=== PATIENT | female | born 1985 | race Caucasian/White ===

== ENCOUNTER 2021-04-11 11:07 | Outpatient (REF) | payer MEDICAID, SELFPAY ==
--- NOTE | ~2021-04-11 | US_ITS ---
EXAMINATION: ULTRASOUND PELVIS AND TRANSVAGINAL. CLINICAL INFORMATION: Excessive menses COMPARISON: None TECHNIQUE: Transabdominal and transvaginal imaging of pelvis is performed FINDINGS: The uterus is anteverted and retroflexed. It measures 9.6 cm in length, 4.0 cm in AP and 6.0 cm in transverse dimension. Endometrial thickness is 1.0 cm. There is fluid and echogenic polyp within the endometrial canal. The polyp measures 0.9 x 0.6 x 0.8 cm. There are small hypoechoic areas in the cervix with increased vascularity Right ovary measures 3.6 x 2.0 x 2.4 cm and volume 9.1 mL. It appears unremarkable. Left ovary measures 3.0 x 2.7 x 2.1 cm and volume 8.9 mL. It appears unremarkable. There is no free fluid in the cul-de-sac. US/US pelvic and transvaginal IMPRESSION: Small polyp within the endometrial canal with minimal fluid. Small cystic areas in the cervix with some vascularity likely complex cysts. Unremarkable ovaries.
== END 2021-04-11 11:08 | disposition home or self-care (01) ==
LOC: HO.US 11:07
PROVIDERS: PCP Internal Medicine; Visit Provider Advanced Practice Midwife
DX: N92.1 Excessive and frequent menstruation with irregular cycle (principal)
CPT/HCPCS: 76830; 76856

== ENCOUNTER 2021-05-17 09:38 | Outpatient (REF) | payer MEDICAID, SELFPAY | END 2021-05-17 09:39 | disposition home or self-care (01) | LOC: HO.LAB 09:38 | PROVIDERS: Visit Provider Internal Medicine | DX: Z20.822 Contact with and (suspected) exposure to COVID-19 (principal) | CPT/HCPCS: C9803; U0003; U0005 ==

== ENCOUNTER 2024-04-28 15:24 | Outpatient (REF) | payer MEDICAID, SELFPAY ==
[2024-04-28 16:23] LABS: MANUAL DIFF FLAG NO
[2024-04-28 16:25] LABS: Basophils Percent Auto 0.5 % (0-2); Eosinophils Absolute Auto 0.2 X10*3/uL (0.0-0.4); Eosinophils Percent Auto 3.1 % (0-4); Hematocrit 39.7 % (37.0-47.0); Hemoglobin 13.9 g/dl (12.0-16.0); Imm Gran Abs Auto 0.02 X10*3/uL (0.00-0.03); Imm Gran Pct Auto 0.4 % (0.0-0.4); Lymphocytes Absolute Auto 1.6 X10*3/uL (1.2-4.9); Lymphocytes Percent Auto 29.1 % (20-40); Mean Corpuscular Hemoglobin 32.2 pg (27.0-33.0); Mean Corpuscular Volume 91.9 fL (80.0-98.0); Mean Platelet Volume 11.2 fL (9.4-12.3); Monocytes Absolute Auto 0.4 X10*3/uL (0.1-1.2); Monocytes Percent Auto 6.7 % (2-11); Neutrophils Absolute Auto 3.4 x10*3/uL (2.0-8.3); Neutrophils Percent Auto 60.2 % (45-73); Platelet Count 275 X10*3/uL (160-400); Red Blood Count 4.32 X10*6/uL (4.20-5.50); Red Cell Distribution Width 11.9 % (11.0-16.0); White Blood Count 5.6 X10*3/uL (4.8-10.8)
[2024-04-28 16:31] LABS: Estimated Average Glucose 94 mg/dL; Hemoglobin A1c % 4.9 % (<6.0)
[2024-04-28 16:42] LABS: Alanine Aminotransferase 20 U/L (0-31); Albumin Level 4.2 g/dL (3.5-5.0); Alkaline Phosphatase 71 U/L (39-117); Anion Gap 13 (12-20); Aspartate Amino Transferase 19 U/L (5-31); Bilirubin Total 0.3 mg/dL (0.0-1.0); Blood Urea Nitrogen 9 mg/dL (9-16); Calcium 9.4 mg/dL (8.4-10.2); Carbon Dioxide 28 mmol/L (22-29); Chloride 105 mmol/L (96-108); Cholesterol 163 mg/dL (<200); Estimated Glomerular Filt Rate > 60; Glucose Random 77 mg/dL (60-115); HDL Cholesterol 43 mg/dL (>40); LDL Cholesterol Calculated 74 mg/dL (<100); Potassium 4.5 mmol/L (3.3-5.1); Sodium 141 mmol/L (135-145); Total Protein 7.7 g/dL (6.5-8.0); Triglycerides 230 mg/dL (<150)
[2024-04-28 16:58] LABS: Vitamin D 25-OH Total 47.7 ng/mL (>30)
[2024-04-29 07:09] LABS: Reflex LDLD? No
[2024-04-29 08:29] LABS: HIV AB/AG Nonreactive (Nonreactive); HIV Num 1 0.05 S/CO (0.00-0.99)
[2024-04-30 07:24] LABS: HCV Log PCR <1.18 NOT DETECTED Log IU/mL (NOT DETECTED); HepC Viral Load <15 NOT DETECTED IU/mL (NOT DETECTED)
== END 2024-04-28 15:25 | disposition home or self-care (01) ==
LOC: HO.HHCL 15:24
PROVIDERS: Visit Provider Internal Medicine
DX: Z00.00 Encounter for general adult medical examination without abnormal findings (principal)
CPT/HCPCS: 36415; 80053; 80061; 82306; 83036; 85025; 87389; 87522

== ENCOUNTER 2025-07-20 11:05 | Outpatient (REF) | payer MEDICAID, SELFPAY ==
--- OUTSIDE RECORDS SUMMARY | 2025-07-20 10:15 | XMS_ITS | Encounter Summary ---
Author Organization [employer] Address [address] [facility] [address] [place] [address] Care Team Providers Care Harvest Crew Supervisor Name Role Phone Gertrude Ortiz MD Primary Care Provide r Reason for Referral * Consultation (Routine) - Pending Review Specialty Diagnoses / Procedures Referred By Tristan palacios Referred To Contact Optometry Diagnoses Encounter for preventative adult health care examination Gertrude Ortiz MD [address] [place] [address] Phone: tel: fax: Referral ID Status Reason Start Date Expiration Date Visits Requested Visits Authorized [id number] Pending Review Specialty Services Required 07/20/2025 07/20/2026 1 1 * Imaging (Routine) - Authorized Specialty Diagnoses / Procedures Referred By Tristan palacios Referred To Contact Radiology Diagnoses Encounter for screening mammogram for malignant neoplasm of breast Procedures BI Mammogram Screening Tomosynthesis Bilateral Gertrude Ortiz MD [address] [place] [address] Phone: tel: fax: [address] Phone: tel: fax: Referral ID Status Reason Start Date Expiration Date V isits Requested Visits Authorized [id number] Authorized 07/20/2025 07/20/2026 1 1 Encounter Details Date Type Department Care Team (Late st Contact Info) Description 07/20/2025 10:15 AM EDT Office Visit [facility] [address] [facility] [place] [address] Gertrude Ortiz MD [address] [facility] [place] [address] Iron deficiency anemia, unspecified iron deficiency anemia type (Primary Dx); Dietary counseling; Exercise counseling; Encounter for screening mammogram for malignant neoplasm of breast; Encounter for preventative adult health care examination; Class 1 obesity due to excess calories without serious comorbidity with body mass index (BMI) of 33.0 to 33.9 in adult; Seborrheic dermatitis Social History Tobacco Use Types Packs/Day Years Used Date Smoking Tobacco: Never Smokeless Tobacco: Never Alcohol Use Standard Drinks/Week Comments Not Currently 0 (1 standard drink = 0.6 oz pur e alcohol) rare Depression Answer Date Recorded Patient Health Questionnaire-9 Score 0 04/28/2024 Patient Health Questionnaire-9 Score 0 04/28/2024 Last PHQ-9: Questionnaire Data Not on file 0 04/28/2024 Housing Stability Answer Date Recorded What is your housing situation today? I have cherry jensen 04/28/[address] you li ve. Do you have problems with any of the following? None of the above 04/28/2024 Food Insecurity Answer Date Recorded Within the past 12 months, y ou worried that your food would run out before you got money to buy more: Never True 04/28/2024 Within the past 12 months,th e food you bought just didn't last and you didn't have enough money to get more: Never True Transportation Answer Date Recorded In the past 12 months, has l ack of transportation kept you from medical appts, meetings, work or from getting things needed for daily living? No 04/28/2024 Utilities Answer Date Recorded In the past 12 months, has t he electric, gas, oil or water company threatened to shut off services in your home? No 04/28/2024 Depression Answer Date Recorded Patient Health Questionnaire-2 Score 0 04/28/2024 Internet Access Answer Date Recorded Internet Access Q1 No 07/07/2024 Internet Access Q2 I do not want or need it 12/2023 Comments Unknown Sex and Gender Information Value Date Recorded Sex Assigned at Female 09/04/2022 10:30 AM EDT Legal Sex Female 10:30 AM EDT Gender Identity Female 09/04/2022 10:30 AM EDT Sexual Orientation Choose not to disclose 2021 10:30 AM EDT documented as of this encounter Last Filed Vital Signs Vital Sign Reading Time Taken Comments Blood Pressure 130/70 07/20/2025 10:21 AM EDT Pulse 74 07/20/2025 10:21 AM EDT Temperature 36.4 C (97.6 F) 07/20/2025 10:21 AM EDT Respiratory Rate 16 07/20/2025 10:21 AM EDT Oxygen Saturation - - Inhaled Oxygen Concentration - - Weight 91.4 kg (201 lb 6.4 oz) 07/20/2025 10:21 AM EDT Height 165.7 cm (5' 5.25 ) 07/20/2025 10:21 AM E DT Body Mass Index 33.26 07/20/2025 10:21 AM EDT documented in this encounter Progress Notes * Gertrude Hernández MD - 07/20/2025 10:15 AM EDT SUBJECTIVE: Sussy Ervin is a 39 y.o. year old female who presents for Physical . 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 Diet:regular Exercise:2-3 times week riding her bike LMP:regular 07/19/25 Pap Smear:due on 12/08/2025 Mammogram: ordered today Hospitalizations/Surgeries: Eye Care:referral to director of emergency nursing today Dental Care:up to date PMHx:on chart FMHx:mother DM type 2 Immunizations: Hepatitis B vaccine Acute Concerns: Patient reports she is concerned about her weight, she has been exercising going to the gym every day and she has been trying to be active and as much as she can to a healthy diet she does report shehas been having some issues trying to avoid sweets and desserts Social History Social History Narrative Not on file Problem List[1] Allergic rhinitis Cyst of cervix Iron deficiency anemia due to chronic blood loss Metrorrhagia Polyp of corpus uteri Recurrent urinary tract infection Seborrheic dermatitis Urinary tract infectious disease Encounter for screening and preventative care Neck pain Upper back pain Obesity (BMI 30.0-34.9) Encounter for preventative adult health care examination Dermatitis of face Encounter for screening mammogram for malignant neoplasm of breast Iron deficiency anemia Class 1 obesity due to excess calories without serious comorbidity with body mass index (BMI) of 33.0 to 33.9 in adult Family History[2] Review of Systems Constitutional: Negative. HENT: Negative. Respiratory: Negative. Cardiovascular: Negative. OBJECTIVE: Vitals: 07/20/25 1021 BP: 130/70 BP Location: Left arm Patient Position: Sitting BP Cuff Size: Adult Pulse: 74 Resp: 16 Temp: 97.6 ??F (36.4 ??C) TempSrc: Oral Weight: 201 lb 6.4 oz (91.4 kg) Height: 5' 5.25 (1.657 m) Physical Exam Constitutional: Appearance: Normal appearance. Cardiovascular: Rate and Rhythm: Normal rate and regular rhythm. Pulmonary: Effort: Pulmonary effort is normal. Breath sounds: Normal breath sounds. Abdominal: General: Abdomen is flat. Palpations: Abdomen is soft. Musculoskeletal: Right lower leg: No edema. Left lower leg: No edema. Neurological: Mental Status: She is alert. Follow Up: Follow up for 4-6weeks televisit weight monitoring. Medications Ordered Prior to Encounter[3] Problem List Items Addressed This Visit Encounter for screening mammogram for malignant neoplasm of breast Relevant Orders BI Mammogram Screening Tomosynthesis Bilateral Encounter for preventative adult health care examination See HPI Relevant Orders Referral to Optometry CBC auto differential Comprehensive Metabolic Panel Hemoglobin A1c HIV-1/2 Antigen and Antibodies, Fourth Generation, with Reflexes Hepatitis C Antibody with Reflex to HCV, RNA, Quantitative, Real-Time PCR Lipid Panel, Standard Vitamin D, 25-Hydroxy, Total, Immunoassay TSH with Reflex to Free T4 Hepatitis B Surface Antibody, Qualitative Hepatitis B surface antigen, EIA Hepatitis B Core Antibody, Total Iron deficiency anemia - Primary Relevant Orders Iron And Total Iron Binding Capacity Ferritin Vitamin B12 (Cobalamin) and Folate Panel, Serum Class 1 obesity due to excess calories without serious comorbidity with body mass index (BMI) of 33.0 to 33.9 in adult Extensive counseling about healthy diet and exercise done today Patient already has been referred to a pump stitcher in the past I decided to start her today on phentermine 15 mg together with topiramate 25 mg daily Relevant Medications phentermine 15 MG capsule topiramate (Topamax) 25 MG tablet Seborrheic dermatitis Relevant Medications ketoconazole (NIZOral) 2 % shampoo Other Visit Diagnoses Dietary counseling Relevant Medications phentermine 15 MG capsule topiramate (Topamax) 25 MG tablet Exercise counseling Relevant Medications phentermine 15 MG capsule topiramate (Topamax) 25 MG tablet [1] Patient Active Problem List Diagnosis Allergic rhinitis Cyst of cervix Iron deficiency anemia due to chronic blood loss Metrorrhagia Polyp of corpus uteri Recurrent urinary tract infection Seborrheic dermatitis Urinary tract infectious disease Encounter for screening and preventative care Neck pain Upper back pain Obesity (BMI 30.0-34.9) Encounter for preventative adult health care examination Dermatitis of face Encounter for screening mammogram for malignant neoplasm of breast Iron deficiency anemia Class 1 obesity due to excess calories without serious comorbidity with body mass index (BMI) of 33.0 to 33.9 in adult [2] No family history on file. [3] Current Outpatient Medications on File Prior to Visit Medication Sig Dispense Refill triamcinolone (Kenalog) 0.1 % cream Apply topically if needed in the morning and at bedtime (pain and swelling). 30 g 2 [DISCONTINUED] ketoconazole (NIZOral) 2 % shampoo Apply topically 2 (two) times a week. 120 mL 1 No current facility-administered medications on file prior to visit. documented in this encounter Miscellaneous Notes * Assessment & Plan Note - Gertrude Hernández MD - 07/20/2025 12:59 PM EDT Associated Problem(s): Encounter for preventative adult health care examination See HPI * Assessment & Plan Note - Gertrude Hernández MD - 07/20/2025 12:59 PM EDT Associated Problem(s): Class 1 obesity due to excess calories without serious comorbidity with bodymass index (BMI) of 33.0 to 33.9 in adult Extensive counseling about healthy diet and exercise done today Patient already has been referred to a pump stitcher in the past I decided to start her today on phentermine 15 mg together with topiramate 25 mg daily documented in this encounter Plan of Treatment Upcoming Encounters Date Type Department Care Team (Late st Contact Info) Description 08/18/2025 9:00 AM EDT Telemedicine [facility]INE [address] [place] [address] Gertrude Ortiz MD [address] [place] [address] Scheduled Orders Name Type Priority Associated Diagnoses Orde r Schedule BI Mammogram Screening Tomosynthesis Bilateral Imaging Routine Encounter for screening mammogram for malignant neoplasm of breast Expected: 07/20/2025, Expires: 09/19/2026 HIV-1/2 Antigen and Antibodies, Fourth Generation, with Reflexes Lab Routine Encounter for preventative adult health care examination Expected: 07/20/2025 (Approximate), Expires: 07/20/2026 Hepatitis C Antibody with Reflex to HCV, RNA, Quantitative, Real-Time PCR Lab Routine Encounter for preventative adult health care examination Expected: 07/20/2025, Expires: 07/20/2026 Hepatitis B Surface Antibody, Qualitative Lab Routine Encounter for preventative adult health care examination Expected: 07/20/2025 (Approximate), Expires: 07/20/2026 Hepatitis B surface antigen, EIA Lab Routine Encounter for preventative adult health care examination Expected: 07/20/2025 (Approximate), Expires: 07/20/2026 Hepatitis B Core Antibody, Total Lab Routine Encounter for preventative adult health care examination Expected: 07/20/2025 (Approximate), Expires: 07/20/2026 Scheduled Referrals Name Type Priority Associated Diagnoses Orde r Schedule Referral to Optometry Outpatient Referral Routine Encounter for preventative adult health care examination Expected: 07/20/2025 (Approximate), Expires: 07/20/2026 documented as of this encounter Procedures Procedure Name Priority Date/Time Associated Diagnosis Comments VITAMIN D,25-OH,TOTAL,IA Routine 07/20/2025 11:33 AM EDT Encounter for preventative adult health care examination VITAMIN B12/FOLATE, SERUM PANEL Routine 07/20/2025 11:33 AM EDT Iron deficiency anemia, unspecified iron deficiency anemia type TSH W/REFLEX TO FT4 Routine 07/20/2025 1 1:33 AM EDT Encounter for preventative adult health care examination CBC WITH AUTO DIFFERENTIAL Routine 07/20/2025 11:33 AM EDT Encounter for preventative adult health care examination IRON AND TOTAL IRON BINDING CAPACITY Routine 07/20/2025 11:33 AM EDT Iron deficiency anemia, unspecified iron deficiency anemia type HEMOGLOBIN A1C Routine 07/20/2025 11:33 AM EDT Encounter for preventative adult health care examination FERRITIN Routine 07/20/2025 11:33 AM EDT Iron deficiency anemia, unspecified iron deficiency anemia type LIPID PANEL, STANDARD Routine 07/20/2025 11:33 AM EDT Encounter for preventative adult health care examination COMPREHENSIVE METABOLIC PANEL Routine 07/20/2025 11:33 AM EDT Encounter for preventative adult health care examination documented in this encounter Results * TSH with Reflex to Free T4 (07/20/2025 11:33 AM EDT) TSH reflex Free T4 1.04 0.32 - 4.0 uIU/mL LABS Blood Venous blood specimen / Unknown 07/20/2025 11:33 AM EDT 07/20/2025 1:29 PM EDT us Gertrude Hernández MD LAB BLOOD ORDERABLES Final Result LABS [address] [place] [phone] * Vitamin D, 25-Hydroxy, Total, Immunoassay (07/20/2025 11:33 AM EDT) Vitamin D 25-OH Total 33.4 >30 ng/mL LABS Comment: Health Based Reference Values*< 20 ng/mL [id number] ng/mL Insufficient> 30 ng/mL Sufficient*Artur HERNANDEZ. N Engl J Med. 2007;357:266-280There is no well-established upper level of normal vitamin Dlevels. Some laboratories use 50 ng/mL as an upper limit ofnormal. However, toxicity is patient-dependent and may occurat any level. Careful correlation with the patient'spresentation is necessary and, if there is concern forvitamin D toxicity, treatment should be consideredirrespective of the serum level.Care must be taken in interpreting Vitamin D results fromdifferent laboratories and methodologies. Published datademonstrated that results from patients undergoinghemodialysis may show a negative bias when tested withvarious automated 25-OH vitamin D assays when compared toLC-MS/MS.When testing samples from patients whose predominant form ofVitamin D is Vitamin D2, such as patients receiving VitaminD2 supplementation, results that are subtherapeutic shouldbe confirmed with another method such as LC-MS/MS. Blood Venous blood specimen / Unknown 07/20/2025 11:33 AM EDT 07/20/2025 1:29 PM EDT us Gertrude Hernández MD LAB BLOOD ORDERABLES Final Result LABS [address] [place] [phone] * (ABNORMAL) Lipid Panel, Standard (07/20/2025 11:33 AM EDT) Triglycerides 115 <150 mg/dL [facility] LAB[facility] Comment:Desirable Triglyceri de: less than 150 mg/dLBorderline High Triglyceride 150-199 mg/dLHigh Triglyceride: 200-499 mg/dLVery High Triglyceride: greater than or equal to 5OO mg/dL Cholesterol 231(H) <200 mg/dL LABS Comment:Desirable Cholestero l: less than 200 mg/dLBorderline High Cholesterol: 200-239 mg/dLHigh Cholesterol: greater than 239 mg/dL LDL Cholesterol Calculated 156(H) <100 mg/dL LABS Comment:Desirable LDL: less than 100 mg/dLNear Optimal/Above Optimal LDL: 110- 129 mg/dLBorderline High LDL: 130-159 mg/dLHigh LDL: 160-189 mg/dLVery High LDL: greater than or equal to 190 mg/dL HDL Cholesterol 52 >40 mg/dL [facility] LAB[facility] Comment:Desirable HDL: great er than 40 mg/dL Note: This HDL assay may give artificially low results in patients with liver disease. Blood Venous blood specimen / Unknown 07/20/2025 11:33 AM EDT 07/20/2025 1:29 PM EDT us Gertrude Hernández MD LAB BLOOD ORDERABLES Final Result LABS [address] [place] [phone] * Hemoglobin A1c (07/20/2025 11:33 AM EDT) Hemoglobin A1c 5.0 <6.0 % [facility] Comment:Hemoglobin A1C Refer ence Range Adults: 4.8 - 6.0 % Non diabetic: < 6.0 % Goal: < 7.0 %Additional Action Suggested: > 8.0 %Note: Hemoglobin A1c results are invalid for patients with abnormal amounts of HbF. Blood transfusions may impact the HbA1c concentration in the patient sample. Estimated Average Glucose 97 mg/dL LABS Comment:eAG = Estimated ave rage glucose which is %A1C expressed asaverage glucose, using the formula of the T3T-[id number] Glucose study (ADAG), Diabetes Care, Vol.31,#8,Jun. 2007 Blood Venous blood specimen / Unknown 07/20/2025 11:33 AM EDT 07/20/2025 1:29 PM EDT us Gertrude Hernández MD LAB BLOOD ORDERABLES Final Result Performing Organization Address City/[facility]/ZIP Co de Phone Number LABS [address] [place], [place] [phone] * (ABNORMAL) Comprehensive Metabolic Panel (07/20/2025 11:33 AM EDT) Sodium 139 135 - 145 mmol/L LABS Potassium 4.5 3.3 - 5.1 mmol/L LABS Chloride 107 96 - 108 mmol/L LABS Carbon Dioxide 27 22 - 29 mmol/L LABS Anion Gap 10(L) 12 - 20 LABS Urea Nitrogen (BUN) 11 9 - 16 mg/dL LABS Creatinine, Serum 0.76 0.5 - 1.4 mg/dL LABS Estimated Glomerular Filt Rate >60 LABS Comment:Chronic Kidney Disea se: Estimated GFR < 60 mL/min/[id number] Kidney Disease: Estimated GFR < 15 mL/min/1.73m2 Glucose 94 60 - 115 mg/dL LABS Calcium 9.3 8.4 - 10.2 mg/dL LABS Bilirubin, Total 0.4 0.0 - 1.0 mg/dL LABS Aspartate Amino Transferase 40(H) 5 - 31 U/L LABS Alanine Aminotransferase 54(H) 0 - 31 U/L LABS Total Protein 7.8 6.5 - 8.0 g/dL LABS Albumin Level 4.4 3.5 - 5.0 g/dL LABS Alkaline Phosphatase 86 39 - 117 U/L LABS Blood Venous blood specimen / Unknown 07/20/2025 11:33 AM EDT 07/20/2025 1:29 PM EDT us Gertrude Hernández MD LAB BLOOD ORDERABLES Final Result Performing Organization Address City/[facility]/ZIP Co de Phone Number LABS [address] [place] [phone] * CBC auto differential (07/20/2025 11:33 AM EDT) White Blood Count 5.6 4.8 - 10.8 X10*3/uL LABS Red Blood Count 4.28 4.20 - 5.50 X10*6/uL LABS Hemoglobin 13.4 12.0 - 16.0 g/dl LABS Hematocrit 39.1 37.0 - 47.0 % LABS Mean Corpuscular Volume 91.4 80.0 - 98.0 fL LABS Mean Corpuscular Hemoglobin 31.3 27.0 - 33.0 pg LABS Mean Corpuscular HGB Conc 34.3 31.0 - 35.0 g/dl LABS Red Cell Distribution Width 12.4 11.0 - 16.0 % LABS Platelet Count 290 160 - 400 X10*3/uL LABS Mean Platelet Volume 11.4 9.4 - 12.3 fL LABS Neutrophils Percent Auto 55.7 45 - 73 % LABS Imm Gran Pct Auto 0.4 0.0 - 0.4 % LABS Lymphocytes Percent Auto 33.3 20 - 40 % LABS Monocytes Percent Auto 6.4 2 - 11 % LABS Eosinophils Percent Auto 3.7 0 - 4 % LABS Basophils Percent Auto 0.5 0 - 2 % LABS NRBC Pct Auto 0.0 0.0 - 0.2 /100WBC LABS Neutrophils Absolute Auto 3.1 2.0 - 8.3 x10*3/uL LABS Imm Gran Abs Auto 0.02 0.00 - 0.03 X10*3/uL LABS Lymphocytes Absolute Auto 1.9 1.2 - 4.9 X10*3/uL LABS Monocytes Absolute Auto 0.4 0.1 - 1.2 X10*3/uL LABS Eosinophils Absolute Auto 0.2 0.0 - 0.4 X10*3/uL LABS Basophils Absolute Auto 0.0 0.0 - 0.2 X10*3/uL LABS NRBC Abs Auto 0.000 0.0 - 0.012 X10*3/uL LABS Blood Venous blood specimen / Unknown 07/20/2025 11:33 AM EDT 07/20/2025 1:29 PM EDT us Gertrude Hernández MD LAB BLOOD ORDERABLES Final Result LABS [address] [place] [phone] * Vitamin B12 (Cobalamin) and Folate Panel, Serum (07/20/2025 11:33 AM EDT) Vitamin B12 285 200 - 900 pg/mL LABS Comment:NORMAL 200-900 PG/ML INDETERMINATE 160-199 PG/ML DEFICIENT < 160 PG/ML Folate 10.0 > or = 4.0 ng/mL LABS Comment:Reference Values:> o r = 4.0 ng/mL< 4.0 ng/mL suggests folate deficiency Methotrexate, aminopterin and folinic acid(leucovorin) are chemotherapeutic agents whose molecularstructures are similar to folate; therefore, the Architectfolate assay cannot be used for patients using these drugs. Blood Venous blood specimen / Unknown 07/20/2025 11:33 AM EDT 07/20/2025 1:29 PM EDT us Gertrude Hernández MD LAB BLOOD ORDERABLES Final Result Performing Organization Address City/[facility]/ZIP Co de Phone Number LABS [address] [place] [phone] * Ferritin (07/20/2025 11:33 AM EDT) Ferritin 25 10 - 250 ng/mL LABS Blood Venous blood specimen / Unknown 07/20/2025 11:33 AM EDT 07/20/2025 1:29 PM EDT us Gertrude Hernández MD LAB BLOOD ORDERABLES Final Result Performing Organization Address City/[facility]/ZIP Co de Phone Number LABS [address] [place] [phone] * Iron And Total Iron Binding Capacity (07/20/2025 11:33 AM EDT) Iron 74 30 - 160 mcg/dL LABS Total Iron Binding Capacity 264 228 - 428 mcg/dL LABS Percent Iron Saturation 28 15 - 50 % LABS Unsaturated Iron Binding 190 ug/dL LABS Blood Venous blood specimen / Unknown 07/20/2025 11:33 AM EDT 07/20/2025 1:29 PM EDT us Gertrude Hernández MD LAB BLOOD ORDERABLES Final Result Performing Organization Address City/[facility] Co de Phone Number LABS [address] [place] [phone] documented in this encounter Visit Diagnoses Diagnosis Iron deficiency anemia, unspecified iron deficiency anemia type- Primary Dietary counseling Dietary surveillance and counseling Exercise counseling Encounter for screening mammogram for malignant neoplasm of breast Encounter for preventative adult health care examination Class 1 obesity due to excess calories without serious comorbidity with body mass index (BMI) of 33.0 to 33.9 in adult Seborrheic dermatitis Unspecified seborrheic dermatitis documented in this encounter Additional Health Concerns Assessment Noted Time PHQ-9 Depression Total Score: 0 04/28/20 24 2:47 PM EDT documented as of this encounter Care Teams Harvest Crew Supervisor Relationship Specialty Start Date End Date Gertrude Ortiz MD [address] [place] [phone] PCP - General Family Medicine 12/02/19 documented as of this encounter
[2025-07-20 13:40] LABS: MANUAL DIFF FLAG NO
[2025-07-20 13:41] LABS: Hematocrit 39.1 % (37.0-47.0); Hemoglobin 13.4 g/dl (12.0-16.0); Imm Gran Abs Auto 0.02 X10*3/uL (0.00-0.03); Imm Gran Pct Auto 0.4 % (0.0-0.4); Lymphocytes Absolute Auto 1.9 X10*3/uL (1.2-4.9); Mean Corpuscular HGB Conc 34.3 g/dl (31.0-35.0); Mean Corpuscular Hemoglobin 31.3 pg (27.0-33.0); Mean Corpuscular Volume 91.4 fL (80.0-98.0); NRBC Abs Auto 0.000 X10*3/uL (0.0-0.012); NRBC Pct Auto 0.0 /100WBC (0.0-0.2); Platelet Count 290 X10*3/uL (160-400); Red Blood Count 4.28 X10*6/uL (4.20-5.50); White Blood Count 5.6 X10*3/uL (4.8-10.8)
[2025-07-20 14:05] LABS: Alanine Aminotransferase 54 U/L (0-31); Albumin Level 4.4 g/dL (3.5-5.0); Alkaline Phosphatase 86 U/L (39-117); Anion Gap 10 (12-20); Aspartate Amino Transferase 40 U/L (5-31); Blood Urea Nitrogen 11 mg/dL (9-16); Calcium 9.3 mg/dL (8.4-10.2); Carbon Dioxide 27 mmol/L (22-29); Chloride 107 mmol/L (96-108); Cholesterol 231 mg/dL (<200); Estimated Glomerular Filt Rate > 60; HDL Cholesterol 52 mg/dL (>40); Iron 74 mcg/dL (30-160); Percent Iron Saturation 28 % (15-50); Potassium 4.5 mmol/L (3.3-5.1); Sodium 139 mmol/L (135-145); Total Iron Binding Capacity 264 mcg/dL (228-428); Total Protein 7.8 g/dL (6.5-8.0); Triglycerides 115 mg/dL (<150); Unsaturated Iron Binding 190 ug/dL
[2025-07-20 14:22] LABS: Hemoglobin A1C 113.9161 umol/L; Total Hemoglobin (HGBA1C) 3651.5829 umol/L
[2025-07-20 14:24] LABS: Ferritin 25 ng/mL (10-250)
[2025-07-20 14:30] LABS: Folate 10.0 ng/mL (> or = 4.0); Vitamin B12 285 pg/mL (200-900)
--- OUTSIDE RECORDS SUMMARY | 2025-07-20 14:47 | XMS_ITS | Encounter Summary ---
Author Organization [facility] Address [address] [facility] [address] [place] [phone] Phone Care Team Providers Care Pattern Painter Name Role Phone Gertrude Ortiz MD Primary Care Provider Darcy Garcia MD Unavailable [phone] Encounter Details Date Type Department Care Team (Late st Contact Info) Description 10/14/2021 Procedure Pass OR Admitting Dept - Virtual Department [address] [place] [address] Social History Tobacco Use Types Packs/Day Years Used Date Smoking Tobacco: Never Smokeless Tobacco: Never Alcohol Use Standard Drinks/Week Comments Never 0 (1 standard drink = 0.6 oz pur e alcohol) Comments No Sex and Gender Information Value Date Recorded Sex Assigned at Not on file Legal Sex Female 10:45 AM EST Gender Identity Not on file Sexual Orientation Not on file documented as of this encounter Plan of Treatment Not on file documented as of this encounter Visit Diagnoses Not on filedocumented in this encounter Care Teams Pattern Painter Relationship Specialty Start Date End Date Gertrude Ortiz MD [address] [place] [phone] PCP - General Internal Medicine 12/03/19 Darcy Garcia MD [address] [place] [address], [address] [place] [phone] francisco 12/03/19 documented as of this encounter Additional Source Comments The information contained in this document represents components of the legal health record. It is not the complete legal health record.[facility]
--- OUTSIDE RECORDS SUMMARY | 2025-07-20 14:47 | XMS_ITS | Clinical Summary ---
Author Organization [facility] Address [address] [place] [address] Phone Care Team Providers Care Ladle Filler Name Role Phone Gertrude Ortiz MD Primary Care Provider Darcy Garcia MD Unavailable [phone] Allergies No known active allergies Medications ferrous sulfate (IRON ORAL) Take 65 mg by mouth daily. Active cholecalciferol (VITAMIN D3) 4,000 unit tablet Take 1,000 Units by mouth daily. Active b complex vitamins capsule Take 1 capsule by mouth daily. Active ibuprofen (ADVIL,MOTRIN) 600 MG tablet Take 1 tablet (600 mg total) by mouth every 6 (six) hours as needed for pain (specific location in comments). 10/14/2021 Active Active Problems Problem Noted Date Diagnosed Date Endometrial polyp 10/14/2021 Iron deficiency anemia due to chronic blood loss 09/07/2021 Overview (09/07/2021): Per patient, anemia has been attributed to menstrual bleeding Menorrhagia with regular cycle 09/05/2021 Overview (09/05/2021): Regular monthly periods, some months very heavy, some normal. Last 3-4 days. Past 1 year. Also spotting for some weeks prior to some of the periods. Assessment & Plan (09/07/2021 9:09 AM EDT): Regular monthly periods, some months very heavy, some normal. Last 3-4 days. Past 1 year. Also spotting for some weeks prior to some of the periods. Review of records shows Hgb 7.5 from 11/2019. I do not have more recent labs. She is partnered male, vasectomy. She has never had an IUD. She recalls side effects from a short course of control pills used years ago. After visit, I receive her labs from [place] that were not received in the referral dated 08/09/21: HgbA1c 4.7, TSH 1.46, chlmaydia and gonnnorrhea are negative, vitD 23, normal LFTs, Ct 0.83, Hgb 11.3/Hct 36.9, Plt 316, WBC 4.9, urine culture e.coli >100,000. I see she was treated for UTI in office visit. There is no record received of any PAPs subsequent to a 2017 PAP. Overall she is borderline mildly anemic, presumably due to menorrhagia, and she is taking an iron pill (from [place] country[place] as the one Rx'ed gave side effects. Pelvic exam is unremarkable. US report reviewed which suggests a small endometrial polyp, and cervical cysts (which are usually nabothian cysts). We discuss management, and I advised hysterosocpy with removal of polyp and d&c, and also placement of mirena. We discuss, using tool design drafter, the details of this procedure, risks, and expected change in mentrual flow. She is undecided if she feels comfortable with the mirena. I reassure her we can remove it if it is giving side effects. She asks if she can just get a hysterectomy. I say that this is an option but has a longer recovery time. 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 She agrees to try the d&c and maybe mirena, with the plan for hysterectomy should things not work out. Encounter for preoperative s creening laboratory testing for COVID-19 virus Immunizations Immunization Administration Dates Next Due Tdap 08/02/2021 Social History Tobacco Use Types Packs/Day Years Used Date Smoking Tobacco: Never Smokeless Tobacco: Never Alcohol Use Standard Drinks/Week Comments Never 0 (1 standard drink = 0.6 oz pur e alcohol) Education Answer Date Recorded Are you interested in more education? Not on makenna e 03/02/2023 Are you concerned about learning? Not on file 03/02/2023 No 03/02/2023 No 03/02/2023 Digital Access Answer Date Recorded No 03/31/2023 No 03/31/2023 No 03/31/2023 Reliable internet access at home? Not on file 03/31/2023 Device with a working camera? Not on file Comments No Sex and Gender Information Value Date Recorded Sex Assigned at Not on file Legal Sex Female 10:45 AM EST Gender Identity Not on file Sexual Orientation Not on file Last Filed Vital Signs Vital Sign Reading Time Taken Comments Blood Pressure 109/62 10/14/2021 10:56 AM EST Pulse 66 10/14/2021 10:56 AM EST Temperature 36.3 C (97.3 F) 10/14/2021 10:56 AM EST Respiratory Rate 16 10/14/2021 10:56 AM EST Oxygen Saturation 100% 10/14/2021 10:56 AM EST Inhaled Oxygen Concentration - - Weight 86.2 kg (190 lb) 10/13/2021 12:35 PM EST Height 162.6 cm (5' 4 ) 10/13/2021 12:35 PM EST Body Mass Index 32.61 10/13/2021 12:35 PM EST Plan of Treatment Health Maintenance Due Date Last Done Comments DEPRESSION SCREENING 1996 HEPATITIS C SCREENING 2002 PAP SMEAR 10/14/2024 10/14/2021, 11/29/2016 MAMMOGRAM 2024 INFLUENZA VACCINE (#1) 2025 COVID-19 VACCINE (3 - 2024-2 6 season) 2025 05/04/2021, 04/13/2021 Adult Td,Tdap Booster 08/02/2031 08/02/2021 HIV ONE-TIME SCREENING (18-6 5 YEARS) Completed 12/03/2019 SMOKING STATUS SCREENING (On ce After 26 Yrs) Completed 10/13/2021 HEPATITIS A VACCINES Aged Out No long er eligible based on patient's age to complete this topic HIB VACCINES Aged Out No longer eligi ble based on patient's age to complete this topic MENINGOCOCCAL VACCINES (ACWY) Aged Out No longer eligible based on patient's age to complete this topic MENINGOCOCCAL VACCINES (B) Aged Out N o longer eligible based on patient's age to complete this topic PNEUMOCOCCAL VACCINES (0-49 years) Aged Out No longer eligible b ased on patient's age to complete this topic Medical Devices Not on file Insurance C3 ACO C3 ACO Y [address] C3 ACO [facility] C3 ACO [facility] C3 ACO Care Teams Ladle Filler Relationship Specialty Start Date End Date Gertrude Ortiz MD [address] [place] [id number] PCP - General Internal Medicine 12/03/19 Darcy Garcia MD [address] [place] [phone] [email or web address] 12/03/19 Additional Source Comments The information contained in this document represents components of the legal health record. It is not the complete legal health record.[facility]
--- OUTSIDE RECORDS SUMMARY | 2025-07-20 14:47 | XMS_ITS | Encounter Summary ---
Author Organization [employer] Address [address] [place] [address] Care Team Providers Care Technologist Infectious Disease Name Role Phone Gertrude Ortiz MD Primary Care Provide r Reason for Visit * Reason Onset Date Comments Appointment Request 07/16/2024 Encounter Details Date Type Department Care Team ([facility] st Contact Info) Description 07/16/2024 Telephone [facility] [address] [place], [place] [phone] Gertrude Ortiz MD [address] [place] [address] Appointment Request Social History Tobacco Use Types Packs/Day Years [...] AM EDT documented as of this encounter Miscellaneous Notes * Telephone Encounter - Mason Rodolfo - 07/16/2024 4:29 PM EDT Tc from pt calling in regards to derm appt for 07/18 requesting to reschedule for a Sunday if possible. Please contact pt at [phone]. (Lithuanian Speaker) documented in this encounter Plan of Treatment Upcoming Encounters Date Type Department Care Team (Late st Contact Info) Description 08/18/2025 9:00 AM EDT Telemedicine [facility] [address] [place] [address] Gertrude Ortiz MD [address] [place] [address] documented as of this encounter Visit Diagnoses Not on filedocumented in this encounter Additional Health Concerns Assessment Noted Time PHQ-9 Depression Total Score: 0 04/28/20 24 2:47 PM EDT documented as of this encounter Care Teams Technologist Infectious Disease Relationship Specialty Start Date End Date Gertrude Ortiz MD [address] [place] [phone] PCP - General Family Medicine 12/02/19 documented as of this encounter
--- OUTSIDE RECORDS SUMMARY | 2025-07-20 14:47 | XMS_ITS | Encounter Summary ---
Author Organization [facility] Address [address] [place] [phone] Phone Care Team Providers Care Mental Health Program Specialist Name Role Phone Gertrude Ortiz MD Primary Care Provider Darcy Garcia MD Unavailable [phone] Encounter Details Date Type Department Care Team (Latest Contact Info) Description 12/03/2019 Transcribe Orders [facility] [address] [place] [address] [place] [phone] Gertrude Ortiz MD [address] [place] [phone] Iron deficiency anemia secondary to blood loss (chronic) (Primary Dx); Annual physical exam Social History Tobacco Use Types Packs/Day Years Used Date Smoking Tobacco: Never Assessed Comments Unknown Sex and Gender Information Value Date Recorded Sex Assigned at Not on file Legal Sex Female 10:45 AM EST Gender Identity Not on file Sexual Orientation Not on file documented as of this encounter Plan of Treatment Not on file documented as of this encounter Results * TSH with reflex (12/03/2019 11:04 AM EST) TSH 1.49 0.27 - 4.20 uIU/mL [facility] Blood 12/03/2019 11:0 4 AM EST 12/03/2019 11:12 AM EST us Gertrude Hernández MD LAB BLOOD ORD ERABLES Final Result [facility] [address] [place] [address] * (ABNORMAL) Iron and iron binding capacity (12/03/2019 11:04 AM EST) IRON 20(L) 30 - 160 ug/dL [facility] IRON BINDING CAPACITY 381 228 - 428 ug/dL [facility] TRANSFERRIN SATURAT. 5(L) 15 - 50 % [facility] Blood 12/03/2019 11:0 4 AM EST 12/03/2019 11:12 AM EST us Gertrude Hernández MD LAB BLOOD ORD ERABLES Final Result [address] [address] * Ferritin (12/03/2019 11:04 AM EST) FERRITIN 25 13 - 150 ug/L [facility] Blood 12/03/2019 11:0 4 AM EST 12/03/2019 11:12 AM EST us Gertrude Hernández MD LAB BLOOD ORD ERABLES Final Result Performing Organization Address [facility]/ZIP Co de Phone Number [address] [address] * Chlamydia Trachomatis and Neisseria Gonorrhoeae Nucleic Acid Detection (12/03/2019 11:04 AM EST) CHLAMYDIA TRACHOMATIS Not Detected Not Detected [facility] NEISERIA GONORRHOEAE Not Detected Not Detected [facility] SPECIMEN TYPE URINE [facility] Urine (Urine) 12/03/2019 11: 04 AM EST 12/03/2019 11:15 AM EST us Gertrude Hernández MD NON CULTURE M ICROBIOLOGY Final Result Performing Organization Address City/[facility]/ZIP Co de Phone Number [address] [address] * Syphilis antibody screen (12/03/2019 11:04 AM EST) RPR NON-REACTIV E NON-REACTI VE [facility] Blood 12/03/2019 11:0 4 AM EST 12/03/2019 11:12 AM EST us Gertrude Hernández MD LAB BLOOD ORD ERABLES Final Result Performing Organization Address City/[facility]/ZIP Co de Phone Number [address] [address] * (ABNORMAL) 25-OH vitamin D (12/03/2019 11:04 AM EST) 25 OH VIT D (TOTAL) 16(L) 30 - 60 ng/mL [facility] Blood 12/03/2019 11:0 4 AM EST 12/03/2019 11:12 AM EST us Gertrude Hernández MD LAB BLOOD ORD ERABLES Final Result Performing Organization Address [facility] Co de Phone Number [address] [address] * HIV-1/2 antigen/antibody (12/03/2019 11:04 AM EST) HIV Antibod(ies) NON-REACTI VE NON-REACTI VE [facility] HIV-1 ANTIGEN NON-REACTI VE NON-REACTI VE [facility] Blood 12/03/2019 11:0 4 AM EST 12/03/2019 11:12 AM EST us Gertrude Hernández MD LAB BLOOD ORD ERABLES Final Result Performing Organization Address City/[facility] Co de Phone Number [address] [address] * LFTs (hepatic panel) (12/03/2019 11:04 AM EST) ALKALINE PHOSPHATASE 62 39 - 117 U/L [facility] TOTAL BILIRUBIN 0.3 0.0 - 1.2 mg/dL [facility] DIRECT BILIRUBIN <0.2 0 - 0.3 mg/dL [facility] Bilirubin (Indirect) NOT CALCULATED 0 - 1.5 mg/dL [facility] AST 29 0 - 37 U/L [facility] ALT 11 0 - 40 U/L [facility] TOTAL PROTEIN 7.5 6.5 - 8.0 g/dL [facility] ALBUMIN 4.0 3.9 - 4.8 g/dL [facility] GLOBULIN 3.5 1 - 4.8 g/dL [facility] A/G Ratio 1.14 1.00 - 4.80 RATIO [facility] Blood 12/03/2019 11:0 4 AM EST 12/03/2019 11:12 AM EST us Gertrude Hernández MD LAB BLOOD ORD ERABLES Final Result Performing Organization Address City/State/[facility] Co de Phone Number [address] [address] * (ABNORMAL) Lipid panel (12/03/2019 11:04 AM EST) HDL 50 mg/dL [facility] Comment: Interpretation <40 mg/dL: Low HDL cholesterol (major risk factor for CHD) Greater than or equal to 60 mg/dL: High HDL cholesterol ( negative risk factor for CHD) HDL - cholesterol is affected by a number of factors, e.g. smoking, excerise, hormones, sex and age. CHOLESTEROL 152 0 - 240 mg/dL [facility] TRIGLYCERIDES 57 30 - 160 mg/dL [facility] LDL 91 50 - 129 mg/dL [facility] Comment: LDL levels in terms of risk for coronary heart disease: <100 mg/dL: Optimal 100-129 mg/dL: Near or above optimal 130-159 mg/dL: Borderline high 160-189 mg/dL: High >190 mg/dL: Very High CARDIAC RISK RATIO 3.0(L) 3.3 - 4.4 C [facility] Blood 12/03/2019 11:0 4 AM EST 12/03/2019 11:12 AM EST us Gertrude Hernández MD LAB BLOOD ORD ERABLES Final Result [address] [address] * Hemoglobin A1c (12/03/2019 11:04 AM EST) HEMOGLOBIN A1C 5.3 4.3 - 5.8 % [facility] Blood 12/03/2019 11:0 4 AM EST 12/03/2019 11:12 AM EST Gertrude Hernández MD LAB BLOOD ORD ERABLES Final Result Performing Organization Address [facility] Co de Phone Number [address] [address] * (ABNORMAL) CBC and differential (12/03/2019 11:04 AM EST) WBC 3.52 3.40 - 11.20 K/uL [facility] RBC 4.04 3.80 - 4.80 M/uL [facility] HGB 7.5(L) 12.0 - 15.0 g/dL [facility] HCT 27.4(L) 36.0 - 46.0 % [facility] PLT 367 130 - 400 K/uL [facility] MCV 67.8(L) 79.0 - 98.0 fL [facility] Comment:Microcytes present. MCH 18.6(L) 27.0 - 34.8 pg [facility] MCHC 27.4(L) 31.5 - 36.0 g/dL [facility] Comment:Hypochromia present. Occasional polychromasia. RDW 26.6(H) 10.8 - 14.6 % [facility] MPV 11.0 9.4 - 12.4 fl [facility] NRBC 0.00 0.00 /100 WBCs [facility] ABSOLUTE NRBC 0.00 0.00 K/uL [facility] DIFF METHOD Auto [facility] NEUTS 60.5 45.30 - 77.70 % [facility] LYMPHS 29.3 12.30 - 39.70 % [facility] MONOS 6.5 4.10 - 12.80 % [facility] EOS 2.0 0 - 7.2 % [facility] BASOS 1.4 0 - 2.80 % [facility] Granulocytes, immature (%) 0.3 0.0 - 0.9 % [facility] ABSOLUTE NEUTS 2.13 1.40 - 7.70 K/uL [facility] ABSOLUTE LYMPHS 1.03 0.60 - 3.20 K/uL [facility] ABSOLUTE MONOS 0.23 0.11 - 0.59 K/uL [facility] ABSOLUTE EOS 0.07 0.01 - 0.50 K/uL [facility] ABSOLUTE BASOS 0.05 0.00 - 0.08 K/uL [facility] Granulocytes, immature 0.01 0.00 - 0.05 K/uL [facility] Blood 12/03/2019 11:0 4 AM EST 12/03/2019 11:12 AM EST us Gertrude Hernández MD LAB BLOOD ORD ERABLES Edited Result - Final [facility] [address] [place], [place] [id number] * Basic metabolic panel (12/03/2019 11:04 AM EST) SODIUM 137 133 - 146 mmol/L [facility] CHLORIDE 103 96 - 108 mmol/L [facility] POTASSIUM 4.3 3.3 - 5.1 mmol/L [facility] CO2 23 21 - 35 mmol/L [facility] BUN 12 6 - 19 mg/dL [facility] CREATININE 0.70 0.5 - 1.5 mg/dL [facility] GLUCOSE 87 70 - 99 mg/dL [facility] CALCIUM 9.1 8.4 - 10.3 mg/dL [facility] EGFR 113 >59 mL/min/1.7 3m2 [facility] Comment:If patient is black, multiply result by 1.159. Estimated glomerular filtration rate calculated using the CKD-EPI equation. ANION GAP 15 10 - 20 mmol/L [facility] Blood 12/03/2019 11:0 4 AM EST 12/03/2019 11:12 AM EST Gertrude Hernández MD LAB BLOOD ORD ERABLES Final Result [facility] [address] [place] [address] documented in this encounter Visit Diagnoses Diagnosis Iron deficiency anemia secondary to blood loss (chronic)- Primary Annual physical exam Routine general medical examination at a health care facility documented in this encounter Care Teams Mental Health Program Specialist Relationship Specialty Start Date End Date Gertrude Ortiz MD [address] [place] [id number] PCP - General Internal Medicine 12/03/19 Darcy Garcia MD [address] [place] [address], [address] [place] [address] francisco 12/03/19 documented as of this encounter Additional Source Comments The information contained in this document represents components of the legal health record. It is not the complete legal health record.[facility]
--- OUTSIDE RECORDS SUMMARY | 2025-07-20 14:47 | XMS_ITS | Clinical Summary ---
Author Organization [employer] Address [address] [facility] [address] [place] [address] Care Team Providers Care Naphthalene Still Operator Name Role Phone Gertrude Ortiz MD Primary Care Provide r Allergies No known active allergies Medications triamcinolone (Kenalog) 0.1 % creamIndication s:Seborrheic dermatitis Apply topically if needed in the morning and at bedtime (pain and swelling). 30 g 2 04/28/20 24 Active phentermine 15 MG capsuleIndicati ons:Class 1 obesity due to excess calories without serious comorbidity with body mass index (BMI) of 33.0 to 33.9 in adult Take 1 capsule (15 mg) by mouth before breakfast. 30 capsule 1 07/20/20 25 025 Active topiramate (Topamax) 25 MG tabletIndicatio ns:Class 1 obesity due to excess calories without serious comorbidity with body mass index (BMI) of 33.0 to 33.9 in adult Take 1 tablet (25 mg) by mouth Once per day. 30 tablet 1 07/20/20 25 026 Active ketoconazole (NIZOral) 2 % shampooIndicati ons:Seborrheic dermatitis Apply topically 2 (two) times a week. 120 mL 3 07/20/20 25 Active ketoconazole (NIZOral) 2 % shampooIndicati ons:Seborrheic dermatitis Apply topically 2 (two) times a week. 120 mL 1 04/28/20 24 025 Discontinued(Re order (will not trigger notification to Pharmacy)) Active Problems Problem Noted Date Diagnosed Date Encounter for screening mamm ogram for malignant neoplasm of breast 07/20/2025 Iron deficiency anemia 07/20/2025 Class 1 obesity due to exces s calories without serious comorbidity with body mass index (BMI) of 33.0 to 33.9 in adult 07/20/2025 Assessment & Plan (07/20/2025 12:59 PM EDT): Extensive counseling about healthy diet and exercise done today Patient already has been referred to a instrumental musician in the past I decided to start her today on phentermine 15 mg together with topiramate 25 mg daily Encounter for preventative adult health care exa mination 04/28/2024 Assessment & Plan (07/20/2025 12:59 PM EDT): See HPI Dermatitis of face 04/28/2024 Encounter for screening and preventative care Assessment & Plan (04/28/2024 3:16 PM EDT): See HPI Assessment & Plan (04/16/2023 4:43 PM EDT): Please refer to HPI Neck pain 04/16/2023 Assessment & Plan (04/17/2023 4:41 PM EDT): Apply heat on affected area Alternate acetaminophen and ibuprofen PRN Upper back pain 04/16/2023 Obesity (BMI 30.0-34.9) 04/16/2023 Assessment & Plan (04/28/2024 3:16 PM EDT): Today extensive discussion was done about life style modifications I advise healthy diet (low calorie) and cardiovascular exercise Assessment & Plan (04/17/2023 4:41 PM EDT): Today extensive discussion was done about life style modifications I advise healthy diet (low calorie) and cardiovascular exercise Allergic rhinitis 01/18/2023 Cyst of cervix 01/18/2023 Iron deficiency anemia due to chronic blood loss 01/18/2023 Assessment & Plan (04/16/2023 4:44 PM EDT): CBC will be check with labs Im expecting improvement patient was follow by MUNICIPAL SERVICES MANAGER and had procedure done after which she reports improvement on her menstrual cycle Metrorrhagia 01/18/2023 Polyp of corpus uteri 01/18/2023 Recurrent urinary tract infection 01/18/2023 Seborrheic dermatitis 01/18/2023 Urinary tract infectious disease 01/18/2023 Encounters Date Type Department Care Team Description 07/20/2025 10:15 AM EDT Office Visit [address] [address] Gertrude Ortiz MD Iron deficiency anemia, unspecified iron deficiency anemia type (Primary Dx); Dietary counseling; Exercise counseling; Encounter for screening mammogram for malignant neoplasm of breast; Encounter for preventative adult health care examination; Class 1 obesity due to excess calories without serious comorbidity with body mass index (BMI) of 33.0 to 33.9 in adult; Seborrheic dermatitis 07/20/2025 Travel 07/17/[address] [address] Gertrude Ortiz MD Chart Prep 07/09/2025 Patient Outreach [address] [address] Gertrude Ortiz MD Pre-visit Planning ((Unable to reach for PVP screening, LVM) to be completed in office ) 05/19/[address] [address] Gertrude Ortiz MD SEP RECALL 05/04/[address] [address] Gertrude Ortiz MD telephone call 04/27/2025 Patient Outreach [facility] [address] [place], [place] [phone] Gertrude Ortiz MD Pre-visit Planning ([facility] unable to reach LVM) from Last 3 Months Immunizations Immunization Administration Dates Next Due Pfizer Covid-19 Vaccine 12+ 05/04/2021, Tdap 08/02/2021 Social History Tobacco Use Types [...] not to disclose 2021 10:30 AM EDT Last Filed Vital Signs Vital Sign Reading Time Taken Comments Blood Pressure 130/70 07/20/2025 10:21 AM EDT Pulse 74 07/20/2025 10:21 AM EDT Temperature 36.4 C (97.6 F) 07/20/2025 10:21 AM EDT Respiratory Rate 16 07/20/2025 10:21 AM EDT Oxygen Saturation 98% 04/28/2024 2:46 PM EDT Inhaled Oxygen Concentration - - Weight 91.4 kg (201 lb 6.4 oz) 07/20/2025 10:21 AM EDT Height 165.7 cm (5' 5.25 ) 07/20/2025 10:21 AM E DT Body Mass Index 33.26 07/20/2025 10:21 AM EDT Plan of Treatment Upcoming Encounters Date Type Department Care Team (Late st Contact Info) Description 08/18/2025 9:00 AM EDT Telemedicine [facility] MEDICINE [address], [place] [phone] Gertrude Ortiz MD [address] [place], [place] [phone] Health Maintenance Due Date Last Done Comments Disability Screening 1984 Alcohol/Substance Use Screening 1996 Family Planning (PISQ) 1999 HPV Vaccines (1 - 3-dose series) 1999 Hepatitis B Vaccines (1 of 3 - 19+ 3-dose series) 2003 Mammogram 2024 Depression Screening 04/28/2025 04/28/2024, 04/28/20 24 SDOH Screening 04/28/2025 04/28/2024 COVID-19 Vaccine ( season) 2025 05/04/2021, 04/13/2021 Influenza Vaccine (#1) 2025 Cervical Cancer Screening 12/08/2025 HPV/Cotest 12/08/2025 12/08/2020 Tobacco Screening 07/20/2026 07/20/2025 Pap Smear 10/14/2026 10/14/2021, 12/08/2020 Lipid Panel 04/28/2029 07/20/2025, 04/06, 04/16/2023, Additional history exists DTaP/Tdap/Td Vaccines (2 - Td or Tdap) 08/02/2031 08/02/2021 Zoster Vaccines (1 of 2) 2034 RSV Patients and Patients Aged 60 years or older (1 - 1-dose 75+ series) 2059 HIV Screening Completed 04/28/2024, 04/05, 10/15/2020 Hepatitis C Screening Completed 04/28/2024, 023 HIB Vaccines Aged Out No longer eligi ble based on patient's age to complete this topic Hepatitis A Vaccines Aged Out No long er eligible based on patient's age to complete this topic IPV Vaccines Aged Out No longer eligi ble based on patient's age to complete this topic Meningococcal B Vaccine Aged Out No l onger eligible based on patient's age to complete this topic Meningococcal Vaccine Aged Out No gabriel gabriel eligible based on patient's age to complete this topic Pneumococcal Vaccine: Pediatrics (0 to 5 Years) and At-Risk Patients (6 to 49) Years Aged Out No longer eligible based on patient's age to complete this topic RSV under 20 months Aged Out No longe r eligible based on patient's age to complete this topic Rotavirus Vaccines Aged Out No longer eligible based on patient's age to complete this topic Procedures Procedure Name Priority Date/Time Associated Diagnosis Comments TSH W/REFLEX TO FT4 Routine 07/20/2025 1 1:33 AM EDT Encounter for preventative adult health care examination VITAMIN D,25-OH,TOTAL,IA Routine 07/20/2025 11:33 AM EDT Encounter for preventative adult health care examination LIPID PANEL, STANDARD Routine 07/20/2025 11:33 AM EDT Encounter for preventative adult health care examination HEMOGLOBIN A1C Routine 07/20/2025 11:33 AM EDT Encounter for preventative adult health care examination COMPREHENSIVE METABOLIC PANEL Routine 07/20/2025 11:33 AM EDT Encounter for preventative adult health care examination CBC WITH AUTO DIFFERENTIAL Routine 07/20/2025 11:33 AM EDT Encounter for preventative adult health care examination VITAMIN B12/FOLATE, SERUM PANEL Routine 07/20/2025 11:33 AM EDT Iron deficiency anemia, unspecified iron deficiency anemia type FERRITIN Routine 07/20/2025 11:33 AM EDT Iron deficiency anemia, unspecified iron deficiency anemia type IRON AND TOTAL IRON BINDING CAPACITY Routine 07/20/2025 11:33 AM EDT Iron deficiency anemia, unspecified iron deficiency anemia type HEPATITIS C VIRAL RNA, QUANTITATIVE, REAL-TIME PCR Routine 04/28/2024 3:25 PM EDT Encounter for preventative adult health care examination HIV 1/2 ANTIGEN/ANTIBODY, FOURTH GENERATION W/RFL Routine 04/28/2024 3:25 PM EDT Encounter for preventative adult health care examination HM PAP/HPV Routine 10/14/2021 HPV MRNA E6/E7 Routine 12/08/2020 9:00 AM EST from Last 3 Months or Most Recently Relevant to Health Maintenance Results * Vitamin D, 25-Hydroxy, Total, Immunoassay (07/20/2025 11:33 AM EDT) [facility] Vitamin D 25-OH Total 33.4 >30 ng/mL [facility] Comment: Health Based Reference Values*< 20 ng/mL [id number] ng/mL Insufficient> 30 ng/mL Sufficient*Artur HERNANDEZ. N [...] BLOOD ORDERABLES Final Result Performing Organization Address City/[facility]/ZIP Co de Phone Number [facility] [address] [place] [phone] * Vitamin B12 (Cobalamin) and Folate Panel, Serum (07/20/2025 11:33 AM EDT) Vitamin B12 285 200 - 900 pg/mL [facility] Comment:NORMAL 200-900 PG/ML INDETERMINATE 160-199 PG/ML DEFICIENT < 160 PG/ML Folate 10.0 > or = 4.0 ng/mL [facility] Comment:Reference Values:> o r = 4.0 [...] BLOOD ORDERABLES Final Result Performing Organization Address [facility] Co de Phone Number [facility] [address] [place] [phone] * TSH with Reflex to Free T4 (07/20/2025 11:33 AM EDT) TSH reflex Free T4 1.04 0.32 - 4.0 uIU/mL [facility] Blood Venous blood specimen / Unknown 07/20/2025 11:33 AM EDT 07/20/2025 1:29 PM EDT us Gertrude Hernández MD LAB BLOOD ORDERABLES Final Result Performing Organization Address City/[facility]/ZIP Co de Phone Number [facility] [address] [place] [phone] * CBC auto differential (07/20/2025 11:33 AM EDT) White Blood Count 5.6 4.8 - 10.8 X10*3/uL [facility] Red Blood Count 4.28 4.20 - 5.50 X10*6/uL [facility] Hemoglobin 13.4 12.0 - 16.0 g/dl [facility] Hematocrit 39.1 37.0 - 47.0 % [facility] Mean Corpuscular Volume 91.4 80.0 - 98.0 fL [facility] Mean Corpuscular Hemoglobin 31.3 27.0 - 33.0 pg [facility] Mean Corpuscular HGB Conc 34.3 31.0 - 35.0 g/dl [facility] Red Cell Distribution Width 12.4 11.0 - 16.0 % [facility] Platelet Count 290 160 - 400 X10*3/uL [facility] Mean Platelet Volume 11.4 9.4 - 12.3 fL [facility] Neutrophils Percent Auto 55.7 45 - 73 % [facility] Imm Gran Pct Auto 0.4 0.0 - 0.4 % [facility] Lymphocytes Percent Auto 33.3 20 - 40 % [facility] Monocytes Percent Auto 6.4 2 - 11 % [facility] Eosinophils Percent Auto 3.7 0 - 4 % [facility] Basophils Percent Auto 0.5 0 - 2 % [facility] NRBC Pct Auto 0.0 0.0 - 0.2 /100WBC [facility] Neutrophils Absolute Auto 3.1 2.0 - 8.3 x10*3/uL [facility] Imm Gran Abs Auto 0.02 0.00 - 0.03 X10*3/uL [facility] Lymphocytes Absolute Auto 1.9 1.2 - 4.9 X10*3/uL [facility] Monocytes Absolute Auto 0.4 0.1 - 1.2 X10*3/uL [facility] Eosinophils Absolute Auto 0.2 0.0 - 0.4 X10*3/uL [facility] Basophils Absolute Auto 0.0 0.0 - 0.2 X10*3/uL [facility] NRBC Abs Auto 0.000 0.0 - 0.012 X10*3/uL [facility] Blood Venous blood specimen / Unknown 07/20/2025 11:33 AM EDT 07/20/2025 1:29 PM EDT Gertrude Hernández MD LAB BLOOD ORDERABLES Final Result Performing Organization Address City/[facility] Co de Phone Number [facility] [address] [place] [phone] * Iron And Total Iron Binding Capacity (07/20/2025 11:33 AM EDT) Iron 74 30 - 160 mcg/dL [facility] Total Iron Binding Capacity 264 228 - 428 mcg/dL [facility] Percent Iron Saturation 28 15 - 50 % [facility] Unsaturated Iron Binding 190 ug/dL [facility] Blood Venous blood specimen / Unknown 07/20/2025 11:33 AM EDT 07/20/2025 1:29 PM EDT us Gertrude Hernández MD LAB BLOOD ORDERABLES Final Result Performing Organization Address [facility] Co de Phone Number [facility] [address] [place] [phone] * Hemoglobin A1c (07/20/2025 11:33 AM EDT) Hemoglobin A1c 5.0 <6.0 % [facility] Comment:Hemoglobin A1C Refer ence Range Adults: 4.8 - 6.0 % Non diabetic: < 6.0 % Goal: < 7.0 %Additional Action Suggested: > 8.0 %Note: Hemoglobin A1c results are invalid for patients with abnormal amounts of HbF. Blood transfusions may impact the HbA1c concentration in the patient sample. Estimated Average Glucose 97 mg/dL [facility] Comment:eAG = Estimated ave rage glucose which is %A1C expressed asaverage glucose, using the formula of the K7T-[id number] Glucose study (ADAG), Diabetes Care, Vol.31,#8,Jun. 2007 Blood Venous blood specimen / Unknown 07/20/2025 11:33 AM EDT 07/20/2025 1:29 PM EDT us Gertrude Hernández MD LAB BLOOD ORDERABLES Final Result [facility] [address] [place] [phone] * Ferritin (07/20/2025 11:33 AM EDT) Ferritin 25 10 - 250 ng/mL [facility] Blood Venous blood specimen / Unknown 07/20/2025 11:33 AM EDT 07/20/2025 1:29 PM EDT us Gertrude Hernández MD LAB BLOOD ORDERABLES Final Result Performing Organization Address City/[facility]/ZIP Co de Phone Number [facility] [address] [place] [phone] * (ABNORMAL) Lipid Panel, Standard (07/20/2025 11:33 AM EDT) Triglycerides 115 <150 mg/dL [facility] Comment:Desirable Triglyceri de: less than 150 mg/dLBorderline High Triglyceride 150-199 mg/dLHigh Triglyceride: 200-499 mg/dLVery High Triglyceride: greater than or equal to 5OO mg/dL Cholesterol 231(H) <200 mg/dL [facility] Comment:Desirable Cholestero l: less than 200 mg/dLBorderline High Cholesterol: 200-239 mg/dLHigh Cholesterol: greater than 239 mg/dL LDL Cholesterol Calculated 156(H) <100 mg/dL [facility] Comment:Desirable LDL: less than 100 mg/dLNear Optimal/Above Optimal LDL: 110- 129 mg/dLBorderline High LDL: 130-159 mg/dLHigh LDL: 160-189 mg/dLVery High LDL: greater than or equal to 190 mg/dL HDL Cholesterol 52 >40 mg/dL [facility] Comment:Desirable HDL: great er than 40 mg/dL Note: This HDL assay may give artificially low results in patients with liver disease. Blood Venous blood specimen / Unknown 07/20/2025 11:33 AM EDT 07/20/2025 1:29 PM EDT us Gertrude Hernández MD LAB BLOOD ORDERABLES Final Result [facility] [address] [place] [phone] * (ABNORMAL) Comprehensive Metabolic Panel (07/20/2025 11:33 AM EDT) Sodium 139 135 - 145 mmol/L [facility] Potassium 4.5 3.3 - 5.1 mmol/L [facility] Chloride 107 96 - 108 mmol/L [facility] Carbon Dioxide 27 22 - 29 mmol/L [facility] Anion Gap 10(L) 12 - 20 [facility] Urea Nitrogen (BUN) 11 9 - 16 mg/dL [facility] Creatinine, Serum 0.76 0.5 - 1.4 mg/dL [facility] Estimated Glomerular Filt Rate >60 [facility] Comment:Chronic Kidney Disea se: Estimated GFR < 60 mL/min/1.26e2Zraxkf Kidney Disease: Estimated GFR < 15 mL/min/1.73m2 Glucose 94 60 - 115 mg/dL [facility] Calcium 9.3 8.4 - 10.2 mg/dL [facility] Bilirubin, Total 0.4 0.0 - 1.0 mg/dL [facility] Aspartate Amino Transferase 40(H) 5 - 31 U/L [facility] Alanine Aminotransferase 54(H) 0 - 31 U/L [facility] Total Protein 7.8 6.5 - 8.0 g/dL [facility] Albumin Level 4.4 3.5 - 5.0 g/dL [facility] Alkaline Phosphatase 86 39 - 117 U/L [facility] Blood Venous blood specimen / Unknown 07/20/2025 11:33 AM EDT 07/20/2025 1:29 PM EDT Gertrude Hernández MD LAB BLOOD ORDERABLES Final Result Performing Organization Address [facility] de Phone Number [facility] [address] [place] [phone] * Hepatitis C Viral RNA, Quantitative, Real-Time PCR (04/28/2024 3:25 PM EDT) Pathologist [facility] Hepatitis C Viral Load <15 NOT DETECTED NOT DETECTED IU/mL [facility] HCV Log PCR <1.18 NOT DETECTED NOT DETECTED Log IU/mL [facility] Comment:For additional infor flory, please refer tohttp://education.BPeSA/faq/PKQ26x8(This link is being provided for informational/educational purposes only.)THIS TEST WAS PERFORMED AT:[employer] [place] [phone] AMBROSE MD Blood 04/28/2024 3:25 PM EDT 04/28/2024 4:17 PM EDT Gertrude Hernández MD LAB BLOOD ORDERABLES Final Result Performing Organization Address [facility] de Phone Number [facility] [address] [place] [phone] * HIV-1/2 Antigen and Antibodies, Fourth Generation, with Reflexes (04/28/2024 3:25 PM EDT) [facility] HIV AB/AG Nonreactive Nonreactive [facility] Comment:HIV-1 p24 Ag and/or HIV-1/HIV-2 Ab not detected.A test result that is nonreactive does not exclude thepossibility of exposure to or infection with HIV-1 and/orHIV-2. Nonreactive results in this assay for individualswith prior exposure to HIV-1 and/or HIV-2 may be due toantigen and antibody levels that are below the limit ofdetection of this assay.[facility] HIV Ag/Ab Combo assay result andsupplemental assay results should be interpreted inconjunction with the patient's clinical presentation,history and other laboratory results. If the results areinconsistent with clinical evidence, additional testing issuggested to confirm the result. Blood Venous blood specimen / Unknown 04/28/2024 3:25 PM EDT 04/28/2024 4:17 PM EDT Gertrude Hernández MD LAB BLOOD ORDERABLES Final Result [facility] [address] [place] [phone] * Hm Pap Smear (10/14/2021) Pap smear abnormal Molly Provider HEALTH MAINTENANCE Final Result * HPV mRNA E6/E7 (12/08/2020 9:00 AM EST) HPV nRNA E6/E7 Not Detected Not Detected [facility] Comment: Methodology: Remedial Reading Teacher-Mediated Amplification This assay detects E6/E7 viral messenger RNA (mRNA) from 14 high-risk HPV types (16,18,31,33,35,39,45,51,52,56,58,59,66,68). The analytical performance characteristics of this assay have been determined by [employer]. The modifications have not been cleared or approved by the FDA. This assay has been validated pursuant to the CLIA regulations and is used for clinical purposes. For additional information, please refer to http://education.[facility].[employer]/QRE461s9 (This link if provided for information/ educational purposes only.) 12/08/2020 9:00 AM EST Denia rGeene CNM LAB BLOOD ORDERABLES Gretchen reich Result [facility] [address] from Last 3 Months or Most Recently Relevant to Health Maintenance Insurance [facility] C3 HSN PARTIAL Care Teams Naphthalene Still Operator Relationship Specialty Start Date End Date Gertrude Ortiz MD [address] [place] [phone] PCP - General Family Medicine 12/02/19
--- OUTSIDE RECORDS SUMMARY | 2025-07-20 14:47 | XMS_ITS | Encounter Summary ---
Author Organization [employer] Address [address] [facility] 7t [place] [address] Care Team Providers Care Polymerization Oven Operator Name Role Phone Gertrude Ortiz MD Primary Care Provide r Reason for Visit * Reason Onset Date Comments Chart Prep 07/17/2025 Encounter Details Date Type Department Care Team (Late st Contact Info) Description 07/17/2025 Telephone [facility] [address] [place] [address] Gertrude Ortiz MD [address] [place] [address] Chart Prep Social History Tobacco Use Types Packs/Day Years [...] encounter Miscellaneous Notes * Telephone Encounter - Melodie Ramsey [place] - 07/17/2025 2:54 PM EDT Chart Prep Labs: done Images: not applicable Referrals: complete Vaccines due: Covid, Flu, Hep B, and HPV Screenings: mammogram and LMP Overdue care gaps: SBIRT, SDOH, PHQ-9, RUI-7, Oral health screening, and Disability screen documented in this encounter Plan of Treatment Upcoming Encounters Date Type Department Care Team (Late st Contact Info) Description 08/18/2025 9:00 AM EDT Telemedicine [facility] [address] [place] [address] Gertrude Ortiz MD [address] [place] [address] documented as of this encounter Visit Diagnoses Not on filedocumented in this encounter Additional Health Concerns Assessment Noted Time PHQ-9 Depression Total Score: 0 04/28/20 24 2:47 PM EDT documented as of this encounter Care Teams Polymerization Oven Operator Relationship Specialty Start Date End Date Gertrude Ortiz MD [address] [place] [phone] PCP - General Family Medicine 12/02/19 documented as of this encounter
--- OUTSIDE RECORDS SUMMARY | 2025-07-20 14:47 | XMS_ITS | Encounter Summary ---
Author Organization [employer] Address [address] [facility] [address]t [place] [address] Care Team Providers Care Consolidator Name Role Phone Gertrude Ortiz MD Primary Care Provide r Encounter Details Date Type Department Care Team (Latest Contact Info) Description 07/20/2025 Travel Social History Tobacco Use Types Packs/Day Years [...] AM EDT documented as of this encounter Plan of Treatment Upcoming Encounters Date Type Department Care Team (Late st Contact Info) Description 08/18/2025 9:00 AM EDT Telemedicine [facility] [address] [place] [address] Gertrude Ortiz MD [address] [place] [address] documented as of this encounter Visit Diagnoses Not on filedocumented in this encounter Additional Health Concerns Assessment Noted Time PHQ-9 Depression Total Score: 0 04/28/20 24 2:47 PM EDT documented as of this encounter Care Teams Consolidator Relationship Specialty Start Date End Date Gertrude Ortiz MD [address] [place] [address] PCP - General Family Medicine 12/02/19 documented as of this encounter
[2025-07-21 08:15] LABS: HBS Num1 0.27 mIU/mL (0-7.99); HBc Num1 0.08 S/CO (0.00-0.79); HBsAGNum1 0.30 S/CO (0.00-0.99); HIV Num 1 0.06 S/CO (0.00-0.99); Hepatitis B Surface Antigen Negative (Negative); ~HepC Num1 0.47 S/CO (0.00-0.79); ~Hepatitis B Surface Antibody NONREACTIVE (Nonreactive); ~Hepatitis C Antibody Nonreactive (Nonreactive)
== END 2025-07-20 11:06 | disposition home or self-care (01) ==
LOC: HO.HHCL 11:05
PROVIDERS: PCP Internal Medicine; Visit Provider Internal Medicine
DX: Z00.00 Encounter for general adult medical examination without abnormal findings (principal); Z11.59 Encounter for screening for other viral diseases; Z11.4 Encounter for screening for human immunodeficiency virus [HIV]; D50.9 Iron deficiency anemia, unspecified
CPT/HCPCS: 36415; 80053; 80061; 82306; 82607; 82728; 82746; 83036; 83540; 84443; 85025; 86704; 86706; 86803; 87340; 87389

== ENCOUNTER 2025-09-28 14:38 | Outpatient (REF) | payer MEDICAID, SELFPAY ==
--- NOTE | ~2025-09-28 | MM_ITS ---
EXAMINATION: MM SCREENING DIGITAL BREAST TOMOSYNTHESIS, BILATERAL CLINICAL INFORMATION: Screening. Asymptomatic. COMPARISON: Mammography: Baseline. TECHNIQUE: Digital breast mammography with tomosynthesis is performed in both the craniocaudal and mediolateral oblique views along with computer-aided detection (CAD). FINDINGS: There are scattered areas of fibroglandular density. Bilateral reduction mammoplasty appear There are no significant masses, abnormal calcifications, or other abnormalities. MM/MM tomosynthesis screening BI IMPRESSION: No mammographic evidence of malignancy. ASSESSMENT: BI-RADS Category 2: Benign RECOMMENDATION: Routine annual mammography screening. 1 year F/U This examination should not preclude the clinical evaluation of a suspicious palpable abnormality. This patient's information was entered into a reminder system with a target due date for their next mammogram. Electronically signed by: Nataliia Nation DO 09/30/2025 12:38 PM [facility]
--- OUTSIDE RECORDS SUMMARY | 2025-09-28 19:30 | XMS_ITS | Clinical Summary ---
Author Organization [facility] Address [address] [place] [address] Phone Care Team Providers Care Client Server Developer Name Role Phone Gertrude Alexander MD Primary Care Provider Darcy Garcia MD Unavailable [phone] Allergies No known active allergies Medications ferrous [...] After visit, I receive her labs from [place] that were not received in the referral [...] also placement of mirena. We discuss, using concrete panel installer, the details of this procedure, risks, and expected change in mentrual flow. She is undecided if she feels comfortable with the mirena. I reassure her we can remove it if it is giving side effects. She asks if she can just get a hysterectomy. I say that this is an option but has a longer recovery time. 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 She agrees to try the d&c [...] file Insurance C3 ACO C3 ACO Y [address] [facility] [address] [facility] [facility] C3 ACO Care Teams Client Server Developer Relationship Specialty Start Date End Date Gertrude Alexander MD [address] [place] [address] PCP - General Internal Medicine 12/03/19 Darcy Garcia MD [address] [place] [address] francisco [email or web address] 12/03/19 Additional Source Comments The information contained in this document represents components of the legal health record. It is not the complete legal health record.[facility]
--- OUTSIDE RECORDS SUMMARY | 2025-09-28 19:30 | XMS_ITS | Encounter Summary ---
Author Organization [facility] Address [address] [facility] [address] [place] [address] Phone Care Team Providers Care Supervisor Carding Name Role Phone Gertrude Alexander MD Primary Care Provider Darcy Garcia MD Unavailable [phone] Encounter Details Date Type Department Care Team (Late st Contact Info) Description 10/14/2021 Procedure Pass OR Admitting Dept - Virtual Department [address] [place] [address] Social History Tobacco Use Types Packs/Day Years [...] on filedocumented in this encounter Care Teams Supervisor Carding Relationship Specialty Start Date End Date Gertrude Alexander MD [address] [place] [phone] PCP - General Internal Medicine 12/03/19 Darcy Garcia MD [address] [place] [address], [address] [place] [address] francisco 12/03/19 documented as of this encounter Additional Source Comments The information contained in this document represents components of the legal health record. It is not the complete legal health record.[facility]
--- OUTSIDE RECORDS SUMMARY | 2025-09-28 19:30 | XMS_ITS | Encounter Summary ---
Author Organization [facility] Address [address] [facility] [address] [place] [address] Phone Care Team Providers Care Scientific Photographer Name Role Phone Gertrude Alexander MD Primary Care Provider Darcy Garcia MD Unavailable [phone] Encounter Details Date Type Department Care Team (Latest Contact Info) Description 12/03/2019 Transcribe Orders [address] [place] [address] Gertrude Alexander MD [address] [place] [address] [id number] Iron deficiency anemia secondary to blood loss [...] EST) TSH 1.49 0.27 - 4.20 uIU/mL [facility] Blood 12/03/2019 11:0 4 AM EST 12/03/2019 11:12 AM EST us Gertrude Alexander MD LAB BLOOD BKR ORDERABLES Final Result [address] [address] * (ABNORMAL) Iron and iron binding capacity (12/03/2019 11:04 AM EST) IRON 20(L) 30 - 160 ug/dL [facility] IRON BINDING CAPACITY 381 228 - 428 ug/dL [facility] TRANSFERRIN SATURAT. 5(L) 15 - 50 % [facility] Blood 12/03/2019 11:0 4 AM EST 12/03/2019 11:12 AM EST us Gertrude Alexander MD LAB BLOOD BKR ORDERABLES Final Result Performing Organization Address City/[facility]/ZIP Co de Phone Number [address] [address] * Ferritin (12/03/2019 11:04 AM EST) FERRITIN 25 13 - 150 ug/L [facility] Blood 12/03/2019 11:0 4 AM EST 12/03/2019 11:12 AM EST us Gertrude Alexander MD LAB BLOOD BKR ORDERABLES Final Result Performing Organization Address [facility]/ZIP Co de Phone Number [address] [address] * Chlamydia Trachomatis and Neisseria Gonorrhoeae Nucleic Acid Detection (12/03/2019 11:04 AM EST) CHLAMYDIA TRACHOMATIS Not Detected Not Detected [facility] NEISERIA GONORRHOEAE Not Detected Not Detected [facility] SPECIMEN TYPE URINE [facility] Urine (Urine) 12/03/2019 11: 04 AM EST 12/03/2019 11:15 AM EST us Gertrude Alexander MD LAB GENERAL O RDERABLES Final Result Performing Organization Address City/[facility]/ZIP Co de Phone Number [address] [address] * Syphilis antibody screen (12/03/2019 11:04 AM EST) RPR NON-REACTIV E NON-REACTI VE [facility] Blood 12/03/2019 11:0 4 AM EST 12/03/2019 11:12 AM EST us Gertrude Alexander MD LAB BLOOD BKR ORDERABLES Final Result [address] [address] * (ABNORMAL) 25-OH vitamin D (12/03/2019 11:04 AM EST) 25 [place] VIT D (TOTAL) 16(L) 30 - 60 ng/mL [facility] Blood 12/03/2019 11:0 4 AM EST 12/03/2019 11:12 AM EST us Gertrude Alexander MD LAB BLOOD BKR ORDERABLES Final Result Performing Organization Address City/[facility]/ZIP Co de Phone Number [address] [address] * HIV-1/2 antigen/antibody (12/03/2019 11:04 AM EST) HIV Antibod(ies) NON-REACTI VE NON-REACTI VE [facility] HIV-1 ANTIGEN NON-REACTI VE NON-REACTI VE [facility] Blood 12/03/2019 11:0 4 AM EST 12/03/2019 11:12 AM EST us Gertrude Alexander MD LAB BLOOD BKR ORDERABLES Final Result Performing Organization Address City/[facility]/ZIP Co de Phone Number [address] [address] * LFTs (hepatic panel) (12/03/2019 11:04 AM EST) ALKALINE PHOSPHATASE 62 39 - 117 U/L [facility] TOTAL BILIRUBIN 0.3 0.0 - 1.2 mg/dL [facility] DIRECT BILIRUBIN <0.2 0 - 0.3 mg/dL [facility] Bilirubin (Indirect) NOT CALCULATED 0 - 1.5 mg/dL [facility] AST 29 0 - 37 U/L [facility] ALT 11 0 - 40 U/L [facility] TOTAL PROTEIN 7.5 6.5 - 8.0 g/dL [facility] ALBUMIN 4.0 3.9 - 4.8 g/dL [facility] GLOBULIN 3.5 1 - 4.8 g/dL [facility] A/G Ratio 1.14 1.00 - 4.80 RATIO [facility] Blood 12/03/2019 11:0 4 AM EST 12/03/2019 11:12 AM EST Gertrude Alexander MD LAB BLOOD BKR ORDERABLES Final Result [facility] [address] [place] [address] * (ABNORMAL) Lipid panel (12/03/2019 11:04 AM EST) HDL 50 mg/dL [facility] Comment: Interpretation <40 mg/dL: Low HDL cholesterol (major risk factor for CHD) Greater than or equal to 60 mg/dL: High HDL cholesterol ( negative risk factor for CHD) HDL - cholesterol is affected by a number of factors, e.g. smoking, excerise, hormones, sex and age. CHOLESTEROL 152 0 - 240 mg/dL [facility] TRIGLYCERIDES 57 30 - 160 mg/dL [facility] LDL 91 50 - 129 mg/dL [facility] Comment: LDL levels in terms of risk for coronary heart disease: <100 mg/dL: Optimal 100-129 mg/dL: Near or above optimal 130-159 mg/dL: Borderline high 160-189 mg/dL: High >190 mg/dL: Very High CARDIAC RISK RATIO 3.0(L) 3.3 - 4.4 [facility] Blood 12/03/2019 11:0 4 AM EST 12/03/2019 11:12 AM EST Gertrude Alexander MD LAB BLOOD BKR ORDERABLES Final Result [address] [address] * Hemoglobin A1c (12/03/2019 11:04 AM EST) HEMOGLOBIN A1C 5.3 4.3 - 5.8 % [facility] Blood 12/03/2019 11:0 4 AM EST 12/03/2019 11:12 AM EST us Gertrude Alexander MD LAB BLOOD BKR ORDERABLES Final Result Performing Organization Address City/[facility] Co de Phone Number [address] [address] * (ABNORMAL) CBC and differential (12/03/2019 11:04 AM EST) WBC 3.52 3.40 - 11.20 K/uL [facility] RBC 4.04 3.80 - 4.80 M/uL [facility] HGB 7.5(L) 12.0 - 15.0 g/dL [facility] HCT 27.4(L) 36.0 - 46.0 % [facility] PLT 367 130 - 400 K/uL [facility] MCV 67.8(L) 79.0 - 98.0 fL [facility] Comment:Microcytes present. MCH 18.6(L) 27.0 - 34.8 pg [facility] MCHC 27.4(L) 31.5 - 36.0 g/dL [facility] Comment:Hypochromia present. Occasional polychromasia. RDW 26.6(H) 10.8 - 14.6 % [facility] MPV 11.0 9.4 - 12.4 fl [facility] NRBC 0.00 0.00 /100 WBCs [facility] ABSOLUTE NRBC 0.00 0.00 K/uL [facility] DIFF METHOD Auto [facility] NEUTS 60.5 45.30 - 77.70 % [facility] LYMPHS 29.3 12.30 - 39.70 % [facility] MONOS 6.5 4.10 - 12.80 % [facility] EOS 2.0 0 - 7.2 % [facility] BASOS 1.4 0 - 2.80 % [facility] Granulocytes, immature (%) 0.3 0.0 - 0.9 % [facility] ABSOLUTE NEUTS 2.13 1.40 - 7.70 K/uL [facility] ABSOLUTE LYMPHS 1.03 0.60 - 3.20 K/uL [facility] ABSOLUTE MONOS 0.23 0.11 - 0.59 K/uL [facility] ABSOLUTE EOS 0.07 0.01 - 0.50 K/uL [facility] ABSOLUTE BASOS 0.05 0.00 - 0.08 K/uL [facility] Granulocytes, immature 0.01 0.00 - 0.05 K/uL [facility] Blood 12/03/2019 11:0 4 AM EST 12/03/2019 11:12 AM EST us Gertrude Alexander MD LAB BLOOD BKR ORDERABLES Edited Result - Final [facility] [address] [place] [address] * Basic metabolic panel (12/03/2019 11:04 AM EST) SODIUM 137 133 - 146 mmol/L [facility] CHLORIDE 103 96 - 108 mmol/L [facility] POTASSIUM 4.3 3.3 - 5.1 mmol/L [facility] CO2 23 21 - 35 mmol/L [facility] BUN 12 6 - 19 mg/dL [facility] CREATININE 0.70 0.5 - 1.5 mg/dL [facility] GLUCOSE 87 70 - 99 mg/dL [facility] CALCIUM 9.1 8.4 - 10.3 mg/dL [facility] EGFR 113 >59 mL/min/1.7 3m2 [facility] Comment:If patient is black, multiply result by 1.159. Estimated glomerular filtration rate calculated using the CKD-EPI equation. 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 It is not the complete legal health record.[facility]
--- OUTSIDE RECORDS SUMMARY | 2025-09-28 19:30 | XMS_ITS | Clinical Summary ---
Author Organization [employer] Address [address] [facility] 7[address] [place] [address] Care Team Providers Care [employer] Worker Name Role Phone Gertrude Ortiz MD Primary Care Provide r Allergies No known active allergies Medications triamcinolone (Kenalog) 0.1 % creamIndications :Seborrheic dermatitis Apply topically if needed in the morning and at bedtime (pain and swelling). 30 g 2 4 Active phentermine 15 MG capsuleIndicatio ns:Class 1 obesity due to excess calories without serious comorbidity with body mass index (BMI) of 33.0 to 33.9 in adult Take 1 capsule (15 mg) by mouth before breakfast. 30 capsule 1 5 Active topiramate (Topamax) 25 MG tabletIndication s:Class 1 obesity due to excess calories without serious comorbidity with body mass index (BMI) of 33.0 to 33.9 in adult Take 1 tablet (25 mg) by mouth Once per day. 30 tablet 1 5 07/20/20 26 Active ketoconazole (NIZOral) 2 % shampooIndicatio ns:Seborrheic dermatitis Apply topically 2 (two) times a week. 120 mL 3 5 Active Active Problems Problem Noted Date Diagnosed [...] Patient already has been referred to a registered route associate in the past I decided to start her today on phentermine 15 mg together with topiramate 25 mg daily Encounter for preventative adult health care exhunter broweration 04/28/2024 Assessment & Plan (07/20/2025 12:59 PM [...] Im expecting improvement patient was follow by LICENSING REGISTRATION EXAMINER and had procedure done after which she reports improvement on her menstrual cycle Metrorrhagia 01/18/2023 Polyp of corpus uteri 01/18/2023 Recurrent urinary tract infection 01/18/2023 Seborrheic dermatitis 01/18/2023 Urinary tract infectious disease 01/18/2023 Encounters Date Type Department Care Team Description 09/21/2025 Telephone [facility] [address] [place] [address] [place], [place] 09/21/2025 Telephone [facility] [address] [place] [address] [place], [place] 08/28/2025 Telephone [facility] [address] [place] [phone] Rula Saldivar OD 07/20/2025 10:15 AM EDT Office Visit [facility] [address] [place] [phone] Gertrude Ortiz MD Iron deficiency anemia, unspecified iron deficiency anemia type (Primary Dx); Dietary counseling; Exercise counseling; Encounter for screening mammogram for malignant neoplasm of breast; Encounter for preventative adult health care examination; Class 1 obesity due to excess calories without serious comorbidity with body mass index (BMI) of 33.0 to 33.9 in adult; Seborrheic dermatitis 07/20/2025 Travel 07/17/2025 Telephone [facility] [address] [place] [phone] Gertrude Ortiz MD Chart Prep 07/09/2025 Patient Outreach [facility] [address] [place] [phone] Gertrude Ortiz MD Pre-visit Planning ((Unable to reach for PVP screening, LVM) to be completed in office ) from Last 3 Months Immunizations Immunization Administration [...] 07/20/2025 10:21 AM EDT Plan of Treatment Health Maintenance Due Date Last Done Comments Disability Screening 1984 Alcohol/Substance Use Screening 1996 Family Planning (PISQ) 1999 HPV Vaccines (1 - 3-dose series) 1999 Hepatitis B Vaccines (1 of 3 - 19+ 3-dose series) 2003 Mammogram 2024 Depression Screening 04/28/2025 04/28/2024, 04/28/20 SDOH Screening 04/28/2025 04/28/2024 COVID-19 Vaccine (3 - season) 2025 05/04/2021, 04/13/2021 Influenza Vaccine (#1) 2025 Cervical Cancer Screening 12/08/2025 HPV/Cotest 12/08/2025 12/08/2020 Tobacco Screening 07/20/2026 07/20/2025 Pap Smear 10/14/2026 10/14/2021, 12/08/2020 Lipid Panel 07/20/2030 07/20/2025, 04/06, 04/16/2023, Additional history exists DTaP/Tdap/Td Vaccines (2 - Td or Tdap) 08/02/2031 08/02/2021 Zoster Vaccines (1 of 2) 2034 RSV Patients and Patients Aged 60 years or older (1 - 1-dose 75+ series) 2059 HIV Screening Completed 07/20/2025, 04/06, 04/16/2023, Additional history exists Hepatitis C Screening Completed 07/20/2025 , 04/28/2024, 04/16/2023 HIB Vaccines Aged Out No longer eligi [...] Procedure Name Priority Date/Time Associated Diagnosis Comments HEPATITIS B CORE AB TOTAL Routine 07/20/2025 11:33 AM EDT Encounter for preventative adult health care examination HEPATITIS B SURFACE ANTIGEN, EIA Routine 07/20/2025 11:33 AM EDT Encounter for preventative adult health care examination HEPATITIS B SURFACE ANTIBODY, QUALITATIVE Routine 07/20/2025 11:33 AM EDT Encounter for preventative adult health care examination TSH W/REFLEX TO FT4 Routine 07/20/2025 1 1:33 AM EDT Encounter for preventative adult health care examination VITAMIN D,25-OH,TOTAL,IA Routine 07/20/2025 11:33 AM EDT Encounter for preventative adult health care examination LIPID PANEL, STANDARD Routine 07/20/2025 11:33 AM EDT Encounter for preventative adult health care examination HEPATITIS C AB W/REFL TO HCV RNA, QN, PCR Routine 07/20/2025 11:33 AM EDT Encounter for preventative adult health care examination HIV 1/2 ANTIGEN/ANTIBODY, FOURTH GENERATION W/RFL Routine 07/20/2025 11:33 AM EDT Encounter for [...] deficiency anemia, unspecified iron deficiency anemia type HM PAP/HPV Routine 10/14/2021 HPV MRNA E6/E7 Routine 12/08/2020 9:00 AM EST from Last 3 Months or Most Recently Relevant to Health Maintenance Results * Vitamin D, 25-Hydroxy, Total, Immunoassay (07/20/2025 11:33 AM EDT) Vitamin D 25-OH Total 33.4 >30 ng/mL [facility] Comment: Health Based Reference Values*< 20 ng/mL [id number] ng/mL Insufficient> 30 ng/mL Sufficient*Artur HERNANDEZ. N [...] Hernández MD LAB BLOOD ORDERABLES Final Result [facility] [address] [place] [phone] * Vitamin B12 (Cobalamin) and Folate Panel, Serum (07/20/2025 11:33 AM EDT) Vitamin B12 285 200 - 900 pg/mL [facility] Comment:NORMAL 200-900 PG/ML INDETERMINATE 160-199 PG/ML DEFICIENT < 160 PG/ML Folate 10.0 > or = 4.0 ng/mL [facility] Comment:Reference Values:> o r = 4.0 [...] BLOOD ORDERABLES Final Result Performing Organization Address City/[facility]/ZIP Co de Phone Number [facility] [address] [place] [phone] * TSH with Reflex to Free T4 (07/20/2025 11:33 AM EDT) Pathologist [facility] TSH reflex Free T4 1.04 0.32 - 4.0 uIU/mL [facility] Blood Venous blood specimen / Unknown 07/20/2025 11:33 AM EDT 07/20/2025 1:29 PM EDT us Gertrude Hernández MD LAB BLOOD ORDERABLES Final Result [facility] [address] [place] [phone] * CBC auto differential (07/20/2025 11:33 AM EDT) Pathologist [facility] White Blood Count 5.6 4.8 - 10.8 X10*3/uL [facility] Red Blood Count 4.28 4.20 - 5.50 X10*6/uL [facility] Hemoglobin 13.4 12.0 - 16.0 g/dl [facility] Hematocrit 39.1 37.0 - 47.0 % [facility] Mean Corpuscular Volume 91.4 80.0 - 98.0 fL [facility] Mean Corpuscular Hemoglobin 31.3 27.0 - 33.0 pg [facility] Mean Corpuscular HGB Conc 34.3 31.0 - 35.0 g/dl [facility] Red Cell Distribution Width 12.4 11.0 - 16.0 % [facility] Platelet Count 290 160 - 400 X10*3/uL [facility] Mean Platelet Volume 11.4 9.4 - 12.3 fL [facility] Neutrophils Percent Auto 55.7 45 - 73 % [facility] Imm Gran Pct Auto 0.4 0.0 - 0.4 % [facility] Lymphocytes Percent Auto 33.3 20 - 40 % [facility] Monocytes Percent Auto 6.4 2 - 11 % [facility] Eosinophils Percent Auto 3.7 0 - 4 % [facility] Basophils Percent Auto 0.5 0 - 2 % [facility] NRBC Pct Auto 0.0 0.0 - 0.2 /100WBC [facility] Neutrophils Absolute Auto 3.1 2.0 - 8.3 x10*3/uL [facility] Imm Gran Abs Auto 0.02 0.00 - 0.03 X10*3/uL [facility] Lymphocytes Absolute Auto 1.9 1.2 - 4.9 X10*3/uL [facility] Monocytes Absolute Auto 0.4 0.1 - 1.2 X10*3/uL [facility] Eosinophils Absolute Auto 0.2 0.0 - 0.4 X10*3/uL [facility] Basophils Absolute Auto 0.0 0.0 - 0.2 X10*3/uL [facility] NRBC Abs Auto 0.000 0.0 - 0.012 X10*3/uL [facility] Blood Venous blood specimen / Unknown 07/20/2025 11:33 AM EDT 07/20/2025 1:29 PM EDT Gertrude Hernández MD LAB BLOOD ORDERABLES Final Result [facility] [address] [place] [phone] * Hepatitis C Antibody with Reflex to HCV, RNA, Quantitative, Real-Time PCR (07/20/2025 11:33 AM EDT) Hepatitis C Antibody Nonreactive Nonreactive [facility] Comment:Antibodies to HCV no t detected; does not exclude early acuteHCV infection. Blood Venous blood specimen / Unknown 07/20/2025 11:33 AM EDT 07/20/2025 1:29 PM EDT Gertrude Hernández MD LAB BLOOD ORDERABLES Final Result Performing Organization Address City/[facility]/ZIP Co de Phone Number [facility] [address] [place] [phone] * Iron And Total Iron Binding Capacity (07/20/2025 11:33 AM EDT) Iron 74 30 - 160 mcg/dL [facility] Total Iron Binding Capacity 264 228 - 428 mcg/dL [facility] Percent Iron Saturation 28 15 - 50 % [facility] Unsaturated Iron Binding 190 ug/dL [facility] Blood Venous blood specimen / Unknown 07/20/2025 11:33 AM EDT 07/20/2025 1:29 PM EDT Gertrude Hernández MD LAB BLOOD ORDERABLES Final Result Performing Organization Address City/[facility]/ZIP Co de Phone Number [facility] [address] [place] [phone] * Hepatitis B surface antigen, EIA (07/20/2025 11:33 AM EDT) Hepatitis B Surface Ag Negative Negative [facility] Blood Venous blood specimen / Unknown 07/20/2025 11:33 AM EDT 07/20/2025 1:29 PM EDT Gertrude Hernández MD LAB BLOOD ORDERABLES Final Result Performing Organization Address City/[facility]/ZIP Co de Phone Number [facility] [address] [place] [phone] * Hepatitis B Core Antibody, Total (07/20/2025 11:33 AM EDT) Pathologist [facility] Hepatitis B Core Antibody Nonreactive Nonreactive [facility] Blood Venous blood specimen / Unknown 07/20/2025 11:33 AM EDT 07/20/2025 1:29 PM EDT us Gertrude Hernández MD LAB BLOOD ORDERABLES Final Result Performing Organization Address [facility] de Phone Number [facility] [address] [place] [phone] * HIV-1/2 Antigen and Antibodies, Fourth Generation, with Reflexes (07/20/2025 11:33 AM EDT) HIV AB/AG Nonreactive Nonreactive [facility] Comment:HIV-1 p24 Ag and/or HIV-1/HIV-2 Ab not detected.A test result that is nonreactive does not exclude thepossibility of exposure to or infection with HIV-1 and/orHIV-2. Nonreactive results in this assay for individualswith prior exposure to HIV-1 and/or HIV-2 may be due toantigen and antibody levels that are below the limit ofdetection of this assay.The [employer] HIV Ag/Ab Combo assay result andsupplemental assay results should be interpreted inconjunction with the patient's clinical presentation,history and other laboratory results. If the results areinconsistent with clinical evidence, additional testing issuggested to confirm the result. Blood Venous blood specimen / Unknown 07/20/2025 11:33 AM EDT 07/20/2025 1:29 PM EDT Gertrude Hernández MD LAB BLOOD ORDERABLES Final Result Performing Organization Address [facility]/ZIP Co de Phone Number [facility] [address] [place] [phone] * Hepatitis B Surface Antibody, Qualitative (07/20/2025 11:33 AM EDT) ~Hepatitis B Surface Antibody NONREACTIVE Nonreactive [facility] Comment:Nonreactive: < 8.00 mIU/mL Blood Venous blood specimen / Unknown 07/20/2025 11:33 AM EDT 07/20/2025 1:29 PM EDT Gertrude Hernández MD LAB BLOOD ORDERABLES Final Result Performing Organization Address [facility] de Phone Number [facility] [address] [place] [phone] * Hemoglobin A1c (07/20/2025 11:33 AM EDT) Hemoglobin A1c 5.0 <6.0 % [facility] Comment:Hemoglobin A1C Refer ence Range Adults: 4.8 - 6.0 % Non diabetic: < 6.0 % Goal: < 7.0 %Additional Action Suggested: > 8.0 %Note: Hemoglobin A1c results are invalid for patients with abnormal amounts of HbF. Blood transfusions may impact the HbA1c concentration in the patient sample. Estimated Average Glucose 97 mg/dL [facility] Comment:eAG = Estimated ave rage glucose which is %A1C expressed asaverage glucose, using the formula of the S9F-SruydtaDdfkspb Glucose study (ADAG), Diabetes Care, Vol.31,#8,2007 Blood Venous blood specimen / Unknown 07/20/2025 11:33 AM EDT 07/20/2025 1:29 PM EDT us Gertrude Hernández MD LAB BLOOD ORDERABLES Final Result Performing Organization Address City/[facility]/ZIP Co de Phone Number [facility] [address] [place] [phone] * Ferritin (07/20/2025 11:33 AM EDT) Ferritin 25 10 - 250 ng/mL [facility] Blood Venous blood specimen / Unknown 07/20/2025 11:33 AM EDT 07/20/2025 1:29 PM EDT us Gertrude Hernández MD LAB BLOOD ORDERABLES Final Result Performing Organization Address [facility] Co de Phone Number [facility] [address] [place] [phone] * (ABNORMAL) Lipid Panel, Standard (07/20/2025 11:33 AM EDT) Pathologist [facility] Triglycerides 115 <150 mg/dL [facility] Comment:Desirable Triglyceri de: less than 150 mg/dLBorderline High Triglyceride 150-199 mg/dLHigh Triglyceride: 200-499 mg/dLVery High Triglyceride: greater than or equal to 5OO mg/dL Cholesterol 231(H) <200 mg/dL [facility] Comment:Desirable Cholestero l: less than 200 mg/dLBorderline High Cholesterol: 200-239 mg/dLHigh Cholesterol: greater than 239 mg/dL LDL Cholesterol Calculated 156(H) <100 mg/dL [facility] Comment:Desirable LDL: less than 100 mg/dLNear Optimal/Above Optimal LDL: 110- 129 mg/dLBorderline High LDL: 130-159 mg/dLHigh LDL: 160-189 mg/dLVery High LDL: greater than or equal to 190 mg/dL HDL Cholesterol 52 >40 mg/dL [facility] Comment:Desirable HDL: great er than 40 mg/dL Note: This HDL assay may give artificially low results in patients with liver disease. Blood Venous blood specimen / Unknown 07/20/2025 11:33 AM EDT 07/20/2025 1:29 PM EDT Gertrude Hernández MD LAB BLOOD ORDERABLES Final Result [facility] [address] [place] [phone] * (ABNORMAL) Comprehensive Metabolic Panel (07/20/2025 11:33 AM EDT) Sodium 139 135 - 145 mmol/L [facility] Potassium 4.5 3.3 - 5.1 mmol/L [facility] Chloride 107 96 - 108 mmol/L [facility] Carbon Dioxide 27 22 - 29 mmol/L [facility] Anion Gap 10(L) 12 - 20 [facility] Urea Nitrogen (BUN) 11 9 - 16 mg/dL [facility] Creatinine, Serum 0.76 0.5 - 1.4 mg/dL [facility] Estimated Glomerular Filt Rate >60 [facility] Comment:Chronic Kidney Disea se: Estimated GFR < 60 mL/min/1.83o2Ketund Kidney Disease: Estimated GFR < 15 mL/min/1.73m2 Glucose 94 60 - 115 mg/dL [facility] Calcium 9.3 8.4 - 10.2 mg/dL [facility] Bilirubin, Total 0.4 0.0 - 1.0 mg/dL [facility] Aspartate Amino Transferase 40(H) 5 - 31 U/L [facility] Alanine Aminotransferase 54(H) 0 - 31 U/L [facility] Total Protein 7.8 6.5 - 8.0 g/dL [facility] Albumin Level 4.4 3.5 - 5.0 g/dL [facility] Alkaline Phosphatase 86 39 - 117 U/L [facility] Blood Venous blood specimen / Unknown 07/20/2025 11:33 AM EDT 07/20/2025 1:29 PM EDT us Gertrude Hernández MD LAB BLOOD ORDERABLES Final Result Performing Organization Address City/[facility]/ZIP Co de Phone Number [facility] [address] [place] [phone] * Hm Pap Smear (10/14/2021) Pap smear abnormal Historical Provider HEALTH MAINTENANCE Final Result * HPV mRNA E6/E7 (12/08/2020 9:00 AM EST) HPV nRNA E6/E7 Not Detected Not Detected [facility] Comment: Methodology: [employer]iceman-Mediated Amplification This assay detects E6/E7 viral messenger RNA (mRNA) from 14 high-risk HPV types (16,18,31,33,35,39,45,51,52,56,58,59,66,68). The analytical performance characteristics of this assay have been determined by [employer]. The modifications have not been cleared or approved by the FDA. This assay has been validated pursuant to the CLIA regulations and is used for clinical purposes. For additional information, please refer to http://education.[email or web address]okonne[employer]/LHH209a5 (This link if provided for information/ educational purposes only.) 12/08/2020 9:00 AM EST Denia Greene CNM LAB BLOOD ORDERABLES Gretchen l Result Performing Organization Address City/[facility]/ZIP Co de Phone Number [facility] Critical access hospital Anywhere [address] from Last 3 Months or Most Recently Relevant to Health Maintenance Insurance [facility] [address] [address] C3 Care Teams [employer] Worker Relationship Specialty Start Date End Date Gertrude Ortiz MD [address] [place] [phone] PCP - General Family Medicine 12/02/19
--- OUTSIDE RECORDS SUMMARY | 2025-09-28 19:30 | XMS_ITS | Encounter Summary ---
Author Organization [employer] Address [address] [facility] [address] [place] [address] Care Team Providers Care Kier Hand Name Role Phone Gertrude Ortiz MD Primary Care Provide r Reason for Visit * Reason Onset Date Comments Appointment Request 07/16/2024 Encounter Details Date Type Department Care Team ([facility] st Contact Info) Description 07/16/2024 Telephone [facility] [address] [place], [place] [phone] Gertrude Ortiz MD [address] [place] [address] Appointment Request Social History Tobacco Use Types [...] Miscellaneous Notes * Telephone Encounter - Mason Reynolds - 07/16/2024 4:29 PM EDT Tc from pt calling in regards to derm appt for 07/18 requesting to reschedule for a Sunday if possible. Please contact pt at [phone]. 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
== END 2025-09-28 14:39 | disposition home or self-care (01) ==
LOC: HO.MAMMO 14:38
PROVIDERS: PCP Internal Medicine; Visit Provider Internal Medicine
DX: Z12.31 Encounter for screening mammogram for malignant neoplasm of breast (principal)
CPT/HCPCS: 77063; 77067

== ENCOUNTER → 2025-09-28 15:45 | Outpatient (BNV) | payer MEDICAID, SELFPAY | PROVIDERS: PCP Internal Medicine; Visit Provider Internal Medicine | DX: Z12.31 Encounter for screening mammogram for malignant neoplasm of breast (principal) | CPT/HCPCS: 77063; 77067 ==